=== PATIENT | female | born 1995 | race American Indian/Alaskan Native ===

== ENCOUNTER 2019-04-10 19:08 | Emergency (ER) | payer SELFPAY ==
[2019-04-10 19:26] VITALS: BP 156/85
--- NOTE | 2019-04-10 19:28 | Emergency Department Report ---
Blank Doc - Documentation Documentation: left sided facial swelling that began yesterday pt has a known bad tooth on the left upper and left lower was supposed to have a dental extraction september 2018 no fever no N/V/D no drainage PMHx none no allergies to meds
--- NOTE | 2019-04-10 19:29 | Emergency Department Report ---
ED ENT HPI - General Chief complaint: Dental/Oral Stated complaint: SWOLLEN JAW/GUMS, ABSCESSED TOOTH Time Seen by Provider: 04/10/19 19:23 Source: patient Mode of arrival: Ambulatory Limitations: No Limitations - History of Present Illness Initial comments: pt is a 23 yo female who presents to the ED with c/o left sided facial swelling that began yesterday. She states that she has a known bad tooth on the left upper and left lower. She was supposed to have a dental extraction september 2018 but moved and did not have it completed. She denies any fever, N/V/D, drainage. PMHx PCOS, LNMP in january but pt states she has irregular cycles no allergies to meds - Related Data Previous Rx's Medication Instructions Recorded Last Taken Type Acetaminophen/Codeine [Tylenol 1 tab PO Q6H PRN #7 tab 04/10/19 Unknown Rx /Codeine # 3 tab] Ibuprofen [Motrin 800 MG tab] 800 mg PO Q8HR PRN #14 tablet 04/10/19 Unknown Rx Penicillin Vk [Veetids TAB] 500 mg PO QID 7 Days #56 tablet 04/10/19 Unknown Rx Allergies Allergy/AdvReac Type Severity Reaction Status Date / Time No Known Allergies Allergy Unverified 04/10/19 19:17 ED Dental HPI - General Chief complaint: Dental/Oral Stated complaint: SWOLLEN JAW/GUMS, ABSCESSED TOOTH Time Seen by Provider: 04/10/19 19:23 Source: patient Mode of arrival: Ambulatory Limitations: No Limitations - Related Data Previous Rx's Medication Instructions Recorded Last Taken Type Acetaminophen/Codeine [Tylenol 1 tab PO Q6H PRN #7 tab 04/10/19 Unknown Rx /Codeine # 3 tab] Ibuprofen [Motrin 800 MG tab] 800 mg PO Q8HR PRN #14 tablet 04/10/19 Unknown Rx Penicillin Vk [Veetids TAB] 500 mg PO QID 7 Days #56 tablet 04/10/19 Unknown Rx Allergies Allergy/AdvReac Type Severity Reaction Status Date / Time No Known Allergies Allergy Unverified 04/10/19 19:17 ED Review of Systems ROS: Stated complaint: SWOLLEN JAW/GUMS, ABSCESSED TOOTH Other details as noted in HPI Comment: All other systems reviewed and negative ED Past Medical Hx - Past Medical History Previous Medical History?: Yes Hx Asthma: Yes Additional medical history: PCOS, Morbid Obesity - Surgical History Past Surgical History?: Yes Additional Surgical History: X1 - Social History Smoking Status: Never Smoker Substance Use Type: None - Medications Home Medications: Home Medications Medication Instructions Recorded Confirmed Last Taken Type Acetaminophen/Codeine [Tylenol 1 tab PO Q6H PRN #7 tab 04/10/19 Unknown Rx /Codeine # 3 tab] Ibuprofen [Motrin 800 MG tab] 800 mg PO Q8HR PRN #14 tablet 04/10/19 Unknown Rx Penicillin Vk [Veetids TAB] 500 mg PO QID 7 Days #56 tablet 04/10/19 Unknown Rx ED Physical Exam - General Limitations: No Limitations General appearance: alert, in no apparent distress - Head Head exam: Present: atraumatic, normocephalic - Eye Eye exam: Present: normal appearance, PERRL - ENT ENT exam: Present: normal orophraynx, mucous membranes moist, other (on the left lower jaw pt has partially cracked tooth, pt has edema present on the gum behind the tooth, small amount of left sided facial swelling in the cheek, uvula is midline ) - Respiratory Respiratory exam: Absent: respiratory distress - Neurological Exam Neurological exam: Present: alert, oriented X3 - Psychiatric Psychiatric exam: Present: normal affect, normal mood - Skin Skin exam: Present: warm, dry, intact ED Course Vital Signs 04/10/19 19:18 Temperature 98.4 F Pulse Rate 99 H Respiratory 16 Rate Blood Pressure 156/85 O2 Sat by Pulse 93 Oximetry ED Medical Decision Making - Medical Decision Making pt is a 23 yo female who presents to the ED with c/o left sided facial swelling that began yesterday. She states that she has a known bad tooth on the left upper and left lower. She was supposed to have a dental extraction september 2018 but moved and did not have it completed. She denies any fever, N/V/D, drainage. PMHx PCOS, LNMP in january but pt states she has irregular cycles. no allergies to meds. on exam: on the left lower jaw pt has partially cracked tooth, pt has edema present on the gum behind the tooth, small amount of left sided facial swelling in the cheek, uvula is midline. pt given abx, anti-inflammatory, and pain meds. Please take all medication as prescribed. do not drive or operate heavy machinery while taking pain medication. follow up with a dentist in the next 3-5 days. return to the emergency room for any new or worsening symptoms. Critical care attestation.: If time is entered above; I have spent that time in minutes in the direct care of this critically ill patient, excluding procedure time. ED Disposition Clinical Impression: Dental abscess, Cracked tooth Disposition: TO HOME OR SELFCARE Is pt being admited?: No Does the pt Need Aspirin: No Condition: Stable Instructions: Dental Abscess (ED), Dental Caries (ED) Additional Instructions: Please take all medication as prescribed. do not drive or operate heavy machinery while taking pain medication. follow up with a dentist in the next 3-5 days. return to the emergency room for any new or worsening symptoms. Prescriptions: Ibuprofen [Motrin 800 MG tab] 800 mg PO Q8HR PRN #14 tablet PRN Reason: Pain, Moderate (4-6) Acetaminophen/Codeine [Tylenol /Codeine # 3 tab] 1 tab PO Q6H PRN #7 tab PRN Reason: Pain , Severe (7-10) Penicillin Vk [Veetids TAB] 500 mg PO QID 7 Days #56 tablet Referrals: your, dentist [Other] - 3-5 Days Time of Disposition: 20:12 Print Language: TURKMEN
[2019-04-10 20:07] LABS: HCG Qualitative,Urine Negative (Negative)
== END 2019-04-10 20:45 | disposition home or self-care (01) ==
LOC: ED 19:08
DX: K03.81 Cracked tooth (principal); K04.7 Periapical abscess without sinus; J45.909 Unspecified asthma, uncomplicated; E66.01 Morbid (severe) obesity due to excess calories; E28.2 Polycystic ovarian syndrome; Z68.42 Body mass index [BMI] 45.0-49.9, adult; Z88.1 Allergy status to other antibiotic agents
CPT/HCPCS: 81025; 99283

== ENCOUNTER 2019-04-13 04:03 | Inpatient (IN) | payer OTHER ==
[2019-04-13] MEDS ORDERED: SUBLIMAZE IV ONE ×2 (04:27)
[2019-04-13] MEDS ORDERED: ZOFRAN IV ONE ×2 (04:27→04:28)
[2019-04-13] MEDS ORDERED: NACL 0.9% 1000 ML 1,000 ML IV ONE (04:27)
[2019-04-13 04:42] LABS: Basophils # (Auto) 0.1 K/mm3 (0.0-0.1); Basophils % (Auto) 0.9 % (0.0-1.8); Eosinophils % (Auto) 0.4 % (0.0-4.3); Hematocrit 34.6 % (30.3-42.9); Lymphocytes # (Auto) 1.9 K/mm3 (1.2-5.4); Lymphocytes % (Auto) 26.6 % (13.4-35.0); Mean Corpuscular HGB Conc 35 % (30-34); Mean Corpuscular Volume 85 fl (79-97); Monocytes # (Auto) 0.5 K/mm3 (0.0-0.8); Monocytes % (Auto) 7.1 % (0.0-7.3); Platelet Count 275 K/mm3 (140-440); Red Blood Count 4.06 M/mm3 (3.65-5.03); Red Cell Distribution Width 14.5 % (13.2-15.2)
[2019-04-13 04:59] LABS: BUN/Creatinine Ratio 11; Blood Urea Nitrogen 8 mg/dL (7-17); Calcium 9.8 mg/dL (8.4-10.2); Hemolysis Index 0
--- NOTE | 2019-04-13 06:05 | Cat Scan Report ---
PROCEDURE: CT NECK W CON TECHNIQUE: Computerized axial tomography of the soft tissue neck was performed following the IV inje ction of iodinated nonionic contrast. CT DOSE LENGTH PRODUCT: 426.7 mGycm HISTORY: dental abscess now with difficulty opening mouth COMPARISONS: None . FINDINGS: Mild soft tissue swelling adjacent to the mandible and maxilla. Reactive left greater than right cerv ical lymphadenopathy. No focal soft tissue fluid collection identified to suggest abscess formation. No periosteal reaction, erosion and/or fracture. The central airway is patent. Posterior nasopharynx is unremarkable. Parapharyngeal fat is normal and symmetric. Major vasculature of the neck as well opacified and normal in caliber. Normal spherical shape of the globes. Retrobulbar fat is unremarkable. The paranasal sinuses and mast oid air cells are clear. Imaged portion of the brain is unremarkable. The cervical spine is intact. IMPRESSION: Mild disorganized soft tissue swelling adjacent to the mandible and maxilla without focal organizing soft tissue fluid collection identified to suggest abscess formation. There is also no periosteal mariah ction or erosion identified. Reactive left greater than right cervical lymphadenopathy. The airway and major vasculature of the ne ck are patent. This document is electronically signed by Richi Macdonald MD., April 13 2019 06:03:59 AM ET
[2019-04-13] MEDS ORDERED: DECADRON IV ONE (08:04)
--- NOTE | 2019-04-13 08:04 | Emergency Department Report ---
ED General Adult HPI - General Chief complaint: Dental/Oral Stated complaint: ABSCESSED TOOTH/SWELLING Time Seen by Provider: 04/13/19 06:33 Source: patient Mode of arrival: Ambulatory Limitations: No Limitations - History of Present Illness Initial comments: Twice 3-year-old female was concerned she was having an allergic reaction as she noted increased swelling of her face after taking insulin. However the swelling was restricted to the left side of the face, the same side where she has an impacted wisdom teeth the reason for the penicillin prescription. She has had swelling and dental pain since Monday or Monday. She stated that last night s he felt like she has difficulty opening her mouth but she had no difficulty with secretions or any problems breathing. She denies fever or chills. -: Gradual, week(s) Location: face, neck Radiation: non-radiation Severity scale (0 -10): 7 Quality: aching Consistency: intermittent Improves with: none Worsens with: none Associated Symptoms: denies other symptoms Treatments Prior to Arrival: none - Related Data Previous Rx's Medication Instructions Recorded Last Taken Type Acetaminophen/Codeine [Tylenol 1 tab PO Q6H PRN #7 tab 04/10/19 Unknown Rx /Codeine # 3 tab] Ibuprofen [Motrin 800 MG tab] 800 mg PO Q8HR PRN #14 tablet 04/10/19 Unknown Rx Penicillin Vk [Veetids TAB] 500 mg PO QID 7 Days #56 tablet 04/10/19 Unknown Rx Allergies Allergy/AdvReac Type Severity Reaction Status Date / Time No Known Allergies Allergy Unverified 04/10/19 19:17 ED Review of Systems ROS: Stated complaint: ABSCESSED TOOTH/SWELLING Other details as noted in HPI Constitutional: denies: chills, fever Eyes: denies: eye pain, eye discharge, vision change ENT: as per HPI, dental pain, other (swelling). denies: ear pain, throat pain Respiratory: denies: cough, shortness of breath, wheezing Cardiovascular: denies: chest pain, palpitations Endocrine: no symptoms reported Gastrointestinal: denies: abdominal pain, nausea, diarrhea Genitourinary: denies: urgency, dysuria, discharge Musculoskeletal: denies: back pain, joint swelling, arthralgia Skin: denies: rash, lesions Neurological: denies: headache, weakness, paresthesias Psychiatric: denies: anxiety, depression Hematological/Lymphatic: denies: easy bleeding, easy bruising ED Past Medical Hx - Past Medical History Previous Medical History?: Yes Hx Asthma: Yes Additional medical history: PCOS, Morbid Obesity - Surgical History Past Surgical History?: Yes Additional Surgical History: X1 - Social History Smoking Status: Never Smoker Substance Use Type: None - Medications Home Medications: Home Medications Medication Instructions Recorded Confirmed Last Taken Type Acetaminophen/Codeine [Tylenol 1 tab PO Q6H PRN #7 tab 04/10/19 Unknown Rx /Codeine # 3 tab] Ibuprofen [Motrin 800 MG tab] 800 mg PO Q8HR PRN #14 tablet 04/10/19 Unknown Rx Penicillin Vk [Veetids TAB] 500 mg PO QID 7 Days #56 tablet 04/10/19 Unknown Rx ED Physical Exam - General Limitations: No Limitations General appearance: alert, in no apparent distress, obese - Head Head exam: Present: atraumatic, normocephalic - Eye Eye exam: Present: normal appearance. Absent: scleral icterus - ENT ENT exam: Present: other (patient has a partially erupted left lower wisdom tooth with some erythema but no angela abscess. There is swelling of the p erimandibular area and submandibular space without fluctuance.). Absent: normal orophraynx (there is 1-1-1/2 fingerbreadths mouth opening. The presence of trismus is not frankly evident) - Neck Neck exam: Present: normal inspection, lymphadenopathy, other (trachea is midline) - Respiratory Respiratory exam: Present: normal lung sounds bilaterally. Absent: respiratory distress - Cardiovascular Cardiovascular Exam: Present: regular rate, normal rhythm. Absent: systolic murmur, diastolic murmur, rubs, gallop - GI/Abdominal GI/Abdominal exam: Present: soft, normal bowel sounds. Absent: distended, tenderness, guarding, rebound - Extremities Exam Extremities exam: Present: normal inspection - Back Exam Back exam: Present: normal inspection - Neurological Exam Neurological exam: Present: alert, oriented X3, CN II-XII intact. Absent: motor sensory deficit - Psychiatric Psychiatric exam: Present: normal affect, normal mood - Skin Skin exam: Present: warm, dry, intact, normal color. Absent: rash ED Course Vital Signs 04/13/19 04/13/19 04/13/19 04:10 04:24 04:30 Temperature 99.7 F H Pulse Rate 103 H 96 H Respiratory 18 19 Rate Blood Pressure 106/56 131/79 O2 Sat by Pulse 97 99 98 Oximetry 04/13/19 04/13/19 04/13/19 04:46 05:00 06:04 Temperature Pulse Rate 92 H 91 H 75 Respiratory 14 19 20 Rate Blood Pressure 124/72 107/59 113/55 O2 Sat by Pulse 95 96 99 Oximetry - Reevaluation(s) Reevaluation #1: CT of the neck ruled out deep neck infection. There is no abscess. There is however substantial facial and neck cellulitis. Patient has been started on IV clindamycin will be given a dose of steroids. She will be admitted for further care and monitoring by the hospitalist service. No surgical process has been identified. 04/13/19 08:03 ED Medical Decision Making - Lab Data Result diagrams: 04/13/19 04:28 04/13/19 04:28 - Radiology Data Radiology results: report reviewed CT neck showed no deep neck infection or abscess Critical care attestation.: If time is entered above; I have spent that time in minutes in the direct care o f this critically ill patient, excluding procedure time. ED Disposition Clinical Impression: Facial cellulitis, Cellulitis, neck, Dental infection Disposition: OP ADMIT IP TO THIS HOSP Is pt being admited?: Yes Does the pt Need Aspirin: No Condition: Stable Referrals: SINTIA NGUYEN MD [Primary Care Provider] - 3-5 Days Time of Disposition: 08:05
[2019-04-13] MEDS ORDERED: DECADRON ONE (09:13)
--- NOTE | 2019-04-13 12:06 | History and Physical Report ---
History of Present Illness Date of examination: 04/13/19 Date of admission: 04/13/19 07:52 Chief complaint: Left jaw pains and swelling History of present illness: Patient is a 23 yo woman with a history Asthma and PCOS with irregular menstrual cycles and left upper and lower tooth decay who was suppose to have a dental extraction in September 2018 but she moved and unable to establish Dentist with current insurance. She has Dental insurance now but it doesn't start until May 06. She started having increase left sided jaw and neck swelling with severe constant radiating sharp pains without aggravating or relieving factors that started about 1 week ago. This is different than the problem in September 2018. She was initially seen here in the ED at [facility] on April 10, 2019 for same problem and sent home on PCN/Tylenol#3 and Motrin 800mg. She comes back today April 13, 2019 with worsening swelling and pain. She stated that last night she felt like she has difficulty opening her mouth but she had no difficulty with secretions or any problems breathing. She denies fever or chills. She is being admitted for tooth infection with SIRS. PMH: as hpi PSH: x 1, tonsillectomy SH: no tob/etoh/illegal drug abuse FH: hypertension and mother of lung cancer, maternal grandmother of bone cancer (she guess) ROS: Constitutional: denies: fever ENT: + left face pain and swelling to the neck area Respiratory: denies: cough, shortness of breath Cardiovascular: denies: chest pain Endocrine: denies unexplained weight loss or gain Gastrointestinal: denies: abdominal pain, nausea Genitourinary: denies: dysuria Rectal: denies no incontinence, no bleeding, no itching, no discharge Musculoskeletal: denies swelling, myaglia, muscle weakness Skin: denies: rash Neurological: denies: headache Hematological/Lymphatic: denies: easy bleeding or easy bruising Allergic/Immunologic: no urticaria, no allergic rhinitis, no anaphylaxis Psych: denies sadness or hopelessness, SI/HI Medications and Allergies Allergies Allergy/AdvReac Type Severity Reaction Status Date / Time No Known Allergies Allergy Unverified 04/10/19 19:17 Home Medications Medication Instructions Recorded Confirmed Last Taken Type Acetaminophen/Codeine [Tylenol 1 tab PO Q6H PRN #7 tab 04/10/19 Unknown Rx /Codeine # 3 tab] Ibuprofen [Motrin 800 MG tab] 800 mg PO Q8HR PRN #14 tablet 04/10/19 Unknown Rx Penicillin Vk [Veetids TAB] 500 mg PO QID 7 Days #56 tablet 04/10/19 Unknown Rx Exam - Physical Exam Narrative exam: Gen: WDWN, NAD, Awake, Alert, Orientated x 3, bmi 48 HEENT: NCAT, EOMI, PERRL, OP abnormal with left lower molar partially cracked and partially erupted left lower wisdom tooth with some erythema, airway patent Neck: supple, no adenopathy, no thyromegaly, no JVD CVS/Heart: RRR, normal S1S2, pulses present bilaterally Chest/Lungs: CTA B, Symmetrical chest expansion, good air entry bilaterally GI/Abdomen: soft, NTND, good bowel sounds, no guarding or rebound /Bladder: no suprapubic tenderness, no CVA or paraspinal tenderness Extermity/Skin: no c/c/e, no obvious rash MSK: FROM x 4 Neuro: CN 2-12 grossly intact, no new focal deficits Psych: calm - Constitutional Vitals: Temp Pulse Resp BP Pulse Ox 97.9 F 94 H 12 156/91 99 04/13/19 08:20 04/13/19 08:30 04/13/19 08:30 04/13/19 08:30 04/13/19 08:30 Results - Labs CBC & Chem 7: 04/13/19 04:28 04/13/19 04:28 Labs: Abnormal lab results 04/13/19 04/13/19 Range/Units 04:28 04:28 MCHC 35 H (30-34) % Glucose 103 H (65-100) mg/dL Assessment and Plan Patient is a 23 yo woman with a history Asthma and PCOS with irregular menstrual cycles and left upper and lower tooth decay who was suppose to have a dental extraction in September 2018 but she moved and unable to establish Dentist with current insurance. She has Dental insurance now but it doesn't start until May 06. She started having increase left sided jaw and neck swelling with severe constant radiating sharp pains without aggravating or relieving factors that started about 1 week ago. This is different than the problem in September 2018. She was initially seen here in the ED at [facility] on April 10, 2019 for same problem and sent home on PCN/Tylenol#3 and Motrin 800mg. She comes back today April 13, 2019 with worsening swelling and pain. She stated that last night she felt like she has difficulty opening her mouth but she had no difficulty with secretions or any problems breathing. She denies fever or chills. She is being admitted for tooth infection with SIRS. * CT neck with IV contrast IMPRESSION: Mild disorganized soft tissue swelling adjacent to the mandible and maxilla without focal organizing soft tissue fluid collection identified to suggest abscess formation. There is also no periosteal reaction or erosion identified. Reactive left greater than right cervical lymphadenopathy. The airway and major vasculature of the neck are patent. Sepsis from tooth infection as evident by HR 99, RR 21: treat with iv abx x 24 hours then d/c home on Oral abx, needs to see Dentist PAOL[facility], none here, she can go on Monday. 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
[2019-04-13] MEDS ORDERED: TYLENOL PO PRN (12:11)
[2019-04-13] MEDS ORDERED: ZOFRAN IV PRN (12:11)
[2019-04-13] MEDS ORDERED: AMBIEN PO PRN (12:11)
[2019-04-13] MEDS ORDERED: PROVENTIL IH PRN (12:12)
[2019-04-13] MEDS: PROTONIX PO SCH (12:35)
[2019-04-13] MEDS: NORCO 5/325 PO PRN ×2 (12:35→21:15)
[2019-04-13] MEDS: NACL 0.9% 1000 ML 1,000 ML IV SCH (12:37)
[2019-04-13] MEDS: CLEOCIN 300 MG/50 mL 300 MG/50 ML BAG IV SCH ×2 (13:25→21:17)
[2019-04-14] MEDS: NACL 0.9% 1000 ML 1,000 ML IV SCH ×2 (01:00→22:59)
[2019-04-14] MEDS: NORCO 5/325 PO PRN ×4 (03:10→17:36)
[2019-04-14] MEDS: CLEOCIN 300 MG/50 mL 300 MG/50 ML BAG IV SCH ×3 (03:51→14:43)
[2019-04-14 05:24] LABS: Hematocrit 31.9 % (30.3-42.9); Hemoglobin 11.2 gm/dl (10.1-14.3); Mean Corpuscular HGB Conc 35 % (30-34); Mean Corpuscular Volume 84 fl (79-97); Platelet Count 284 K/mm3 (140-440); Red Blood Count 3.81 M/mm3 (3.65-5.03); Red Cell Distribution Width 14.3 % (13.2-15.2)
[2019-04-14 05:45] LABS: BUN/Creatinine Ratio 12; Blood Urea Nitrogen 7 mg/dL (7-17); Calcium 9.3 mg/dL (8.4-10.2); Hemolysis Index 2
[2019-04-14] MEDS: PROTONIX PO SCH (10:03)
--- NOTE | 2019-04-14 13:00 | Progress Note ---
Assessment and Plan Assessment and plan: Patient is a 23 yo woman with a history Asthma and PCOS with irregular menstrual cycles and left upper and lower tooth decay who was suppose to have a dental extraction in September 2018 but she moved and unable to establish Dentist with current insurance. She has Dental insurance now but it doesn't start until May 06. She started having increase left sided jaw and neck swelling with severe constant radiating sharp pains without aggravating or relieving factors that started about 1 week ago. This is different than the problem in September 2018. She was initially seen here in the ED at [facility] on April 10, 2019 for same problem and sent home on PCN/Tylenol#3 and Motrin 800mg. She comes back today April 13, 2019 with worsening swelling and pain. She stated that last night she felt like she has difficulty opening her mouth but she had no difficulty with secretions or any problems breathing. She denies fever or chills. She is being admitted for tooth infection with SIRS. * CT neck with IV contrast IMPRESSION: Mild disorganized soft tissue swelling adjacent to the mandible and maxilla without focal organizing soft tissue fluid collection identified to suggest abscess formation. There is also no p eriosteal reaction or erosion identified. Reactive left greater than right cervical lymphadenopathy. The airway and major vasculature of the neck are patent. Sepsis from tooth infection as evident by HR 99, RR 21: treat with iv abx x 24 hours then d/c home on Oral abx, consulted ID for oral abx choice, needs to see Dentist none here, she can go on Monday. Asthma: nebs prn Morbid Obesity, bmi 48: insurance counselor on weight reduction Polycystic ovarian syndrome: weight reduction counseling full code DVT ppx sq heparin home reconciliation reviewed and done History Interval history: Patient was seen and examined. Follow-up on current diagnosis. No overnight e vents reported to me. Patient denies any chest pain, shortness breath, nausea/vomiting or severe headaches. Imaging, nursing note, chart, labs and old chart reviewed. Discussed with patient. Hospitalist Physical - Physical exam Narrative exam: Gen: WDWN, NAD, Awake, Alert, Orientated x 3, bmi 48 HEENT: NCAT, EOMI, PERRL, OP abnormal with left lower molar partially cracked and partially erupted left lower wisdom tooth with some erythema, airway patent Neck: supple,adenopathy, no thyromegaly, no JVD CVS/Heart: RRR, normal S1S2, pulses present bilaterally Chest/Lungs: CTA B, Symmetrical chest expansion, good air entry bilaterally GI/Abdomen: soft, NTND, good bowel sounds, no guarding or rebound /Bladder: no suprapubic tenderness, no CVA or paraspinal tenderness Extermity/Skin: no c/c/e, no obvious rash MSK: FROM x 4 Neuro: CN 2-12 grossly intact, no new focal deficits Psych: calm - Constitutional Vitals: Temp Pulse Resp BP Pulse Ox 98.9 F 92 H 20 123/77 91 04/14/19 11:37 04/14/19 11:37 04/14/19 11:37 04/14/19 11:37 04/14/19 11:37 Results - Labs CBC & Chem 7: 04/14/19 05:01 04/14/19 05:01 Labs: Laboratory Last Values WBC 8.2 K/mm3 (4.5-11.0) 04/14/19 05:01 RBC 3.81 M/mm3 (3.65-5.03) 04/14/19 05:01 Hgb 11.2 gm/dl (10.1-14.3) 04/14/19 05:01 Hct 31.9 % (30.3-42.9) 04/14/19 05:01 MCV 84 fl (79-97) 04/14/19 05:01 MCH 29 pg (28-32) 04/14/19 05:01 MCHC 35 % (30-34) H 04/14/19 05:01 RDW 14.3 % (13.2-15.2) 04/14/19 05:01 Plt Count 284 K/mm3 (140-440) 04/14/19 05:01 Lymph % (Auto) 26.6 % (13.4-35.0) 04/13/19 04:28 [place] % (Auto) 7.1 % (0.0-7.3) 04/13/19 04:28 Eos % (Auto) 0.4 % (0.0-4.3) 04/13/19 04:28 Baso % (Auto) 0.9 % (0.0-1.8) 04/13/19 04:28 Lymph # 1.9 K/mm3 (1.2-5.4) 04/13/19 04:28 [place] # 0.5 K/mm3 (0.0-0.8) 04/13/19 04:28 Eos # 0.0 K/mm3 (0.0-0.4) 04/13/19 04:28 Baso # 0.1 K/mm3 (0.0-0.1) 04/13/19 04:28 Seg Neutrophils % 65.0 % (40.0-70.0) 04/13/19 04:28 Seg Neutrophils # 4.7 K/mm3 (1.8-7.7) 04/13/19 04:28 Sodium 138 mmol/L (137-145) 04/14/19 05:01 Potassium 4.2 mmol/L (3.6-5.0) 04/14/19 05:01 Chloride 100.1 mmol/L (98-107) 04/14/19 05:01 Carbon Dioxide 24 mmol/L (22-30) 04/14/19 05:01 18 mmol/L 04/14/19 05:01 BUN 7 mg/dL (7-17) 04/14/19 05:01 0.6 mg/dL (0.7-1.2) L 04/14/19 05:01 Estimated GFR > 60 ml/min 04/14/19 05:01 12 % 04/14/19 05:01 Glucose 135 mg/dL (65-100) H 04/14/19 05:01 Lactic Acid 1.00 mmol/L (0.7-2.0) 04/13/19 04:28 Calcium 9.3 mg/dL (8.4-10.2) 04/14/19 05:01 HCG, Qual Negative (Negative) 04/13/19 04:28 Active Medications - Current Medications Current Medications: Generic Name Dose Route Start Last Admin Trade Name Freq PRN Reason Stop Dose Admin Acetaminophen 650 mg 04/13/19 12:11 Tylenol PO Q6H PRN Non Cardiac Pain or Temp>100.5 Acetaminophen/Hydrocodone Bitart 1 each 04/13/19 12:11 04/14/19 11:59 [place] 5/325 PO 1 each Q4H PRN Administration Pain, Moderate (4-6) Albuterol 2.5 mg 04/13/19 12:12 Proventil IH Q4HRT PRN Shortness Of Breath Heparin Sodium (Porcine) 5,000 unit 04/14/19 13:11 Heparin SUB-Q Q12HR SILVINA Clindamycin HCl 300 mg in 50 mls @ 100 mls/hr 04/13/19 14:00 04/14/19 10:03 Cleocin 300 Mg/50 Ml IV 100 mls/hr Q6H SILVINA Administration Protocol Sodium Chloride 1,000 mls @ 100 mls/hr 04/13/19 13:00 04/14/19 01:00 Nacl 0.9% 1000 Ml IV 100 mls/hr DIRECT SILVINA Administration Morphine Sulfate 2 mg 04/13/19 12:13 Morphine IV Q4H PRN Pain , Severe (7-10) Ondansetron HCl 4 mg 04/13/19 12:11 Zofran IV Q4H PRN Nausea And Vomiting Pantoprazole Sodium 40 mg 04/13/19 13:00 04/14/19 10:03 Protonix PO 40 mg QDAY SILVINA Administration Zolpidem Tartrate 5 mg 04/13/19 12:11 Ambien PO QHS PRN Sleep
[2019-04-14] MEDS: HEPARIN SUB-Q SCH ×2 (14:43→22:56)
[2019-04-14] MEDS: MORPHINE IV PRN (15:27)
--- NOTE | 2019-04-14 16:38 | Consultation ---
History of Present Illness - Reason for Consult Consult date: 04/14/19 oral abscess/penicillin allergy Requesting physician: SABAS LEE - History of Present Illness 23 y/o female with history obesity, asthma and PCOS admitted on 04/13/2019 due to a-week history of left cheek edema, pain and tenderness. Seen in the ED on 04/10/2019 found to have a dental abscess and sent home on Penicillin VK QID. Patient reports that after second dose of penicillin VK she developed worsening bilateral facial swelling and tongue swelling with difficulties opening her mo uth. No itching or rash. She decided to come to the ED. In the ED, temp 98.5, HR 91, R 20, O2 sat 95, BP 132/83. WBC 7.2 . Hg 12. Plat 275. Creat 0.7 Lactate 1. UA negative. Blood cultures 04/13/[address] neck showed mild disorganized soft tissue swelling adjacent to the mandible and maxillary sinus, no collections, no periostial reactions. Review of Systems: General: no fever, chills. Cutaneous: no rash, pruritus Head: no headaches or injury Eyes: no changes in vision, eye pain, double vision Ears: no ear pain, ear discharge, ringing or hearing loss Nose: no nose bleeding, stuffiness Mouth & throat: +trismus Neck: +left neck swelling edema/tenderness Respiratory: no cough, wheezing, sputum, hemoptysis, pleuritic chest pain Cardiovascular: no chest pain, leg edema, cyanosis, MALONEY, orthopnea Musculoskeletal: no edema Gastrointestinal: no nausea, vomiting, no hematemesis, diarrhea, constipation, melena, bright red blood in stools, fecal incontinence, jaundice Genitourinary/Reproductive: no frequent urination, dysuria, hematuria, incontinence Neurogical: no seizures, no headaches, no weakness, no paresthesias, no loss of speech or vision; no memory loss, no vertigo, no tremors, no numbness Psychiatric: stable mood; no excessive anxiety, sadness or moodiness Medications and Allergies Allergies Allergy/AdvReac Type Severity Reaction Status Date / Time Penicillins Allergy Swelling Verified 04/13/19 12:25 Home Medications Medication Instructions Recorded Confirmed Last Taken Type Acetaminophen/Codeine [Tylenol 1 tab PO Q6H PRN #7 tab 04/10/19 Unknown Rx /Codeine # 3 tab] Ibuprofen [Motrin 800 MG tab] 800 mg PO Q8HR PRN #14 tablet 04/10/19 Unknown Rx Penicillin Vk [Veetids TAB] 500 mg PO QID 7 Days #56 tablet 04/10/19 Unknown Rx Active Meds: Active Medications Acetaminophen (Tylenol) 650 mg PO Q6H PRN PRN Reason: Non Cardiac Pain or Temp>100.5 Acetaminophen/Hydrocodone Bitart ([place] 5/325) 1 each PO Q4H PRN PRN Reason: Pain, Moderate (4-6) Last Admin: 04/14/19 11:59 Dose: 1 each Documented by: Albuterol (Proventil) 2.5 mg IH Q4HRT PRN PRN Reason: Shortness Of Breath Heparin Sodium (Porcine) (Heparin) 5,000 unit SUB-Q Q12HR [facility] Last Admin: 04/14/19 14:43 Dose: 5,000 unit Documented by: Clindamycin HCl (Cleocin 300 Mg/50 Ml) 300 mg in 50 mls @ 100 mls/hr IV Q6H SILVINA; Protocol Last Admin: 04/14/19 14:43 Dose: 100 mls/hr Documented by: Sodium Chloride (Nacl 0.9% 1000 Ml) 1,000 mls @ 100 mls/hr IV DIRECT SILVINA Last Admin: 04/14/19 01:00 Dose: 100 mls/hr Documented by: Morphine Sulfate (Morphine) 2 mg IV Q4H PRN PRN Reason: Pain , Severe (7-10) Last Admin: 04/14/19 15:27 Dose: 2 mg Documented by: Ondansetron HCl (Zofran) 4 mg IV Q4H PRN PRN Reason: Nausea And Vomiting Pantoprazole Sodium (Protonix) 40 mg PO QDAY [facility] Last Admin: 04/14/19 10:03 Dose: 40 mg Documented by: Zolpidem Tartrate (Ambien) 5 mg PO QHS PRN PRN Reason: Sleep Physical Examination - Physical Exam Narrative exam: General appearance: Alert in no resp distress Eyes: anicteric sclerae, moist conjunctivae; no lid-lag; PERRLA HENT: Atraumatic; oropharynx limited +trismus Neck: +left lateral neck edema and tenderness Lungs: CTA, with normal respiratory effort and no intercostal retractions CV: RRR Abdomen: Soft, non-tender; no masses or hepatosplenomegaly Extremities: extensive right lateral forefoot necrotic changes and devitalized tissue Skin: Normal temperature, turgor and texture; no rash, ulcers or subcutaneous nodules Psych: Appropriate affect, alert and oriented to person, place and time. Neuro: alert and oriented x 3. Moving all extermities - Constitutional Vitals: Vital Signs Temp Pulse Resp BP Pulse Ox 98.9 F 92 H 20 123/77 91 04/14/19 11:37 04/14/19 11:37 04/14/19 11:37 04/14/19 11:37 04/14/19 11:37 Temperature -Last 24 Hours Temperature 98.9 F Temperature 98.7 F Temperature 99.2 F Temperature 98.5 F Results - Labs CBC & Chem 7: 04/14/19 05:01 04/14/19 05:01 Labs: Abnormal lab results 04/14/19 04/14/19 Range/Units 05:01 05:01 MCHC 35 H (30-34) % Creatinine 0.6 L (0.7-1.2) mg/dL Glucose 135 H (65-100) mg/dL Assessment and Plan Cultures: Blood cultures 04/13/2019 no growth so far. Assessment: 23 y/o female with history obesity, asthma and PCOS admitted on 04/13/2019 due to a-week history of left-facial edema, pain and tenderness. Seen in the ED on 04/10/2019 found to have a dental abscess and sent home on Penicillin VK QID. Patient reports that after second dose of penicillin VK she developed worsening bilateral facial swelling and tongue swelling with difficulties opening her mouth: 1) Left upper odontogenic infection: known to have dental decay needing extraction. CT neck showed mild disorganized soft tissue swelling adjacent to the mandible and maxillary sinus, no collections, no periostial reactions. Placed on penicillin VK with presumed allergic reaction. Now on clindamycin. 2) Penicillin allergic reaction: better. Recommendations: - increase clindamycin 600 mg IV q 8 hour - monitor trismus/oral intake in 1-2 days, if better ok to d/c home on clindamycin 450 mg PO TID for 7 days - f/u with dentist as an outpatient Will follow. Caitlin Fam MD Infectious Diseases Director Strategic Account Management [facility] M [phone] O [phone]
[2019-04-14] MEDS: CLEOCIN 600 MG/50 mL 600 MG/50 ML BAG IV SCH (17:35)
[2019-04-14] MEDS ORDERED: IBUPROFEN PO PRN (20:21)
[2019-04-15] MEDS: CLEOCIN 600 MG/50 mL 600 MG/50 ML BAG IV SCH ×2 (02:47→11:11)
[2019-04-15] MEDS: MORPHINE IV PRN ×4 (02:51→18:12)
[2019-04-15] MEDS: PROTONIX PO SCH (09:43)
[2019-04-15] MEDS: HEPARIN SUB-Q SCH ×2 (09:44→21:48)
--- NOTE | 2019-04-15 10:34 | Progress Note ---
Assessment and Plan Cultures: Blood cultures 04/13/2019 no growth so far. Assessment: 23 y/o female with history obesity, asthma and PCOS admitted on 04/13/2019 due to a-week history of left-facial edema, pain and tenderness. Seen in the ED on 04/10/2019 found to have a dental abscess and sent home on Penicillin VK QID. Patient reports that after second dose of penicillin VK she developed worsening bilateral facial swelling and tongue swelling with difficulties opening her mouth: 1) Left upper odontogenic infection: known to have dental decay needing extraction. CT neck showed mild disorganized soft tissue swelling adjacent to the mandible and maxillary sinus, no collections, no periostial reactions. 2) Penicillin allergic reaction: better. 3) Clindamycin allergic: reports increased neck and throat swelling, Recommendations: - discontinue clindamycin- allergic reaction reported - continue to monitor worsening trismus/oral intake - start Levofloxacin 750mg IV every 24 hours -continue Vancomycin PK dosing - f/u with dentist as an outpatient [facility] M: [phone] O:[phone] Subjective Date of service: 04/15/19 Interval history: Patient seen and examined. Reports increased throat and neck swelling with Clind amycin dose. Medication stopped, RN a bedside. No fevers. Objective - Exam Narrative Exam: General appearance: Awake. Alert. Distress observed, allergic reaction to Clindamycin Eyes: anicteric sclerae, moist conjunctivae; no lid-lag; PERRLA HENT: Atraumatic; oropharynx, worsening trismus Neck: +left lateral neck edema and tenderness. Right lateral neck edema Lungs: CTA, with normal respiratory effort and no intercostal retractions CV: RRR Abdomen: Soft, non-tender; no masses or hepatosplenomegaly Extremities: No pedal edema, no cyanosis. Skin: Normal temperature, turgor and texture; no rash, ulcers or subcutaneous nodules Psych: Appropriate affect, alert and oriented to person, place and time. Neuro: alert and oriented x 3. Moving all extermities - Constitutional Vitals: Vital Signs Temp Pulse Resp BP Pulse Ox 98.7 F 92 H 24 145/84 96 04/15/19 05:20 04/15/19 09:52 04/15/19 05:20 04/15/19 09:52 04/15/19 05:20 Temperature -Last 24 Hours Temperature 98.7 F Temperature 99.5 F Temperature 99.2 F Temperature 98.9 F - Labs CBC & Chem 7: 04/14/19 05:01 04/14/19 05:01
[2019-04-15] MEDS ORDERED: BENADRYL IV PRN (11:53)
--- NOTE | 2019-04-15 11:59 | Progress Note ---
Assessment and Plan Assessment and plan: Patient is a 23 yo woman with a history Asthma and PCOS with irregular menstrual cycles and left upper and lower tooth decay who was suppose to have a dental extraction in September 2018 but she moved and unable to establish Dentist with current insurance. She has Dental insurance now but it doesn't start until May 06. She started having increase left sided jaw and neck swelling with severe constant radiating sharp pains without aggravating or relieving factors that started about 1 week ago. This is different than the problem in September 2018. She was initially seen here in the ED at [facility] on April 10, 2019 for same problem and sent home on PCN/Tylenol#3 and Motrin 800mg. She comes back today April 13, 2019 with worsening swelling and pain. She stated that last night she felt like she has difficulty opening her mouth but she had no difficulty with secretions or any problems breathing. She denies fever or chills. She is being admitted for tooth infection with SIRS. * CT neck with IV contrast IMPRESSION: Mild disorganized soft tissue swelling adjacent to the mandible and maxilla without focal organizing soft tissue fluid collection identified to suggest abscess formation. There is also no p eriosteal reaction or erosion identified. Reactive left greater than right cervical lymphadenopathy. The airway and major vasculature of the neck are patent. Sepsis from tooth infection as evident by HR 99, RR 21: ID input noted, abx adjusted Asthma: nebs prn Morbid Obesity, bmi 48: retirement plan counselor on weight reduction Polycystic ovarian syndrome: weight reduction counseling Trismus: start steroids, ordered PT. full code DVT ppx sq heparin Home reconciliation reviewed and done Disposition: continue inpatient care, was going to discharge but she developed worsening trismus, so discharge held and IV steroids started History Interval history: Patient was seen and examined. Follow-up on current diagnosis of tooth infection. No overnight events reported to me. Patient denies any chest pain, shortness breath, nausea/vomiting or severe headaches. Imaging, nursing note, chart, labs and old chart reviewed. Discussed with patient. Hospitalist Physical - Physical exam Narrative exam: Gen: WDWN, NAD, Awake, Alert, Orientated x 3, bmi 48 HEENT: NCAT, EOMI, PERRL, OP abnormal with left lower molar partially cracked and partially erupted left lower wisdom tooth with some erythema, airway patent Neck: supple,adenopathy, no thyromegaly, no JVD CVS/Heart: RRR, normal S1S2, pulses present bilaterally Chest/Lungs: CTA B, Symmetrical chest expansion, good air entry bilaterally GI/Abdomen: soft, NTND, good bowel sounds, no guarding or rebound /Bladder: no suprapubic tenderness, no CVA or paraspinal tenderness Extermity/Skin: no c/c/e, no obvious rash MSK: FROM x 4 Neuro: CN 2-12 grossly intact, no new focal deficits Psych: calm - Constitutional Vitals: Temp Pulse Resp BP Pulse Ox 98.7 F 92 H 24 145/84 96 04/15/19 05:20 04/15/19 09:52 04/15/19 05:20 04/15/19 09:52 04/15/19 05:20 Results - Labs CBC & Chem 7: 04/14/19 05:01 04/14/19 05:01 Labs: Laboratory Last Values WBC 8.2 K/mm3 (4.5-11.0) 04/14/19 05:01 RBC 3.81 M/mm3 (3.65-5.03) 04/14/19 05:01 Hgb 11.2 gm/dl (10.1-14.3) 04/14/19 05:01 Hct 31.9 % (30.3-42.9) 04/14/19 05:01 MCV 84 fl (79-97) 04/14/19 05:01 MCH 29 pg (28-32) 04/14/19 05:01 MCHC 35 % (30-34) H 04/14/19 05:01 RDW 14.3 % (13.2-15.2) 04/14/19 05:01 Plt Count 284 K/mm3 (140-440) 04/14/19 05:01 Lymph % (Auto) 26.6 % (13.4-35.0) 04/13/19 04:28 [place] % (Auto) 7.1 % (0.0-7.3) 04/13/19 04:28 Eos % (Auto) 0.4 % (0.0-4.3) 04/13/19 04:28 Baso % (Auto) 0.9 % (0.0-1.8) 04/13/19 04:28 Lymph # 1.9 K/mm3 (1.2-5.4) 04/13/19 04:28 [place] # 0.5 K/mm3 (0.0-0.8) 04/13/19 04:28 Eos # 0.0 K/mm3 (0.0-0.4) 04/13/19 04:28 Baso # 0.1 K/mm3 (0.0-0.1) 04/13/19 04:28 Seg Neutrophils % 65.0 % (40.0-70.0) 04/13/19 04:28 Seg Neutrophils # 4.7 K/mm3 (1.8-7.7) 04/13/19 04:28 Sodium 138 mmol/L (137-145) 04/14/19 05:01 Potassium 4.2 mmol/L (3.6-5.0) 04/14/19 05:01 Chloride 100.1 mmol/L (98-107) 04/14/19 05:01 Carbon Dioxide 24 mmol/L (22-30) 04/14/19 05:01 18 mmol/L 04/14/19 05:01 BUN 7 mg/dL (7-17) 04/14/19 05:01 0.6 mg/dL (0.7-1.2) L 04/14/19 05:01 Estimated GFR > 60 ml/min 04/14/19 05:01 12 % 04/14/19 05:01 Glucose 135 mg/dL (65-100) H 04/14/19 05:01 Lactic Acid 1.00 mmol/L (0.7-2.0) 04/13/19 04:28 Calcium 9.3 mg/dL (8.4-10.2) 04/14/19 05:01 HCG, Qual Negative (Negative) 04/13/19 04:28 Active Medications - Current Medications Current Medications: Generic Name Dose Route Start Last Admin Trade Name Freq PRN Reason Stop Dose Admin Acetaminophen 650 mg 04/13/19 12:11 Tylenol PO Q6H PRN Non Cardiac Pain or Temp>100.5 Acetaminophen/Hydrocodone Bitart 1 each 04/13/19 12:11 04/14/19 17:36 [place] 5/325 PO 1 each Q4H PRN Administration Pain, Moderate (4-6) Albuterol 2.5 mg 04/13/19 12:12 Proventil IH Q4HRT PRN Shortness Of Breath Diphenhydramine HCl 25 mg 04/15/19 11:53 Benadryl IV Q6H PRN Itching Heparin Sodium (Porcine) 5,000 unit 04/14/19 13:11 04/15/19 09:44 Heparin SUB-Q 5,000 unit Q12HR SILVINA Administration Clindamycin HCl 600 mg in 50 mls @ 100 mls/hr 04/14/19 18:00 04/15/19 11:11 Cleocin 600 Mg/50 Ml IV 100 mls/hr Q8H SILVINA Administration Protocol Methylprednisolone Sodium Succinate 80 mg 04/15/19 14:00 Solu-Medrol IV Q8HR SILVINA Morphine Sulfate 2 mg 04/13/19 12:13 04/15/19 09:43 Morphine IV 2 mg Q4H PRN Administration Pain , Severe (7-10) Ondansetron HCl 4 mg 04/13/19 12:11 Zofran IV Q4H PRN Nausea And Vomiting Pantoprazole Sodium 40 mg 04/13/19 13:00 04/15/19 09:43 Protonix PO 40 mg QDAY SILVINA Administration Zolpidem Tartrate 5 mg 04/13/19 12:11 Ambien PO QHS PRN Sleep Nutrition/Malnutrition Assess - Dietary Evaluation Nutrition/Malnutrition Findings: Nutrition Notes Start: 04/14/19 15:53 Freq: Status: Active Protocol: Document 04/14/19 15:53 RM (Rec: 04/14/19 15:54 RM [id number]) Nutrition Notes 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 Ramez 21 points. Nutrition Intervention Revisit per MD consult or patient Sign Off request:
[2019-04-15] MEDS ORDERED: VANCOMYCIN 2,000 MG in NACL 0.9% 500 ML 500 ML IV ONE (12:30)
[2019-04-15] MEDS ORDERED: VANCOMYCIN PHARMACY TO DOSE IV SCH (13:00)
[2019-04-15] MEDS: LEVAQUIN 750MG/150ML 750 MG/150 ML BAG IV SCH (13:45)
[2019-04-15] MEDS: SOLU-Medrol IV SCH ×2 (13:45→21:49)
[2019-04-16] MEDS ORDERED: VANCOMYCIN 2,000 MG in NACL 0.9% 500 ML 500 ML IV SCH (00:30)
[2019-04-16] MEDS: MORPHINE IV PRN (02:04)
[2019-04-16] MEDS: SOLU-Medrol IV SCH (05:13)
--- NOTE | 2019-04-16 10:49 | Progress Note ---
Assessment and Plan Cultures: Blood cultures 04/13/2019 no growth so far. Assessment: 23 y/o female with history obesity, asthma and PCOS admitted on 04/13/2019 due to a-week history of left-facial edema, pain and tenderness. Seen in the ED on 04/10/2019 found to have a dental abscess and sent home on Penicillin VK QID. Patient reports that after second dose of penicillin VK she developed worsening bilateral facial swelling and tongue swelling with difficulties opening her mouth: 1) Left upper odontogenic infection: known to have dental decay needing extraction. CT neck showed mild disorganized soft tissue swelling adjacent to the mandible and maxillary sinus, no collections, no periostial reactions. 2) Penicillin allergic reaction: better. 3) Clindamycin allergic: better Recommendations: - continue Levofloxacin 750mg IV every 24 hours -continue Vancomycin PK dosing -Anticipate discharge on Levaquin 750mg PO for 5 days. - f/u with dentist as an outpatient [facility] for evaluation of decayed tooth extraction if indicated - appointment on Monday. [facility] M: [phone] O:[phone] Subjective Date of service: 04/16/19 Interval history: Patient seen and examined. Sitting on the side of the bed. Patient stated that she was feeling better today. Dental appointment this Monday. Objective - Exam Narrative Exam: General appearance: Awake. Alert. Distress observed, allergic reaction to Clindamycin Eyes: anicteric sclerae, moist conjunctivae; no lid-lag; PERRLA HENT: Atraumatic; oropharynx, worsening trismus Neck: Right lateral neck edema improved Lungs: CTA, with normal respiratory effort and no intercostal retractions CV: RRR Abdomen: Soft, non-tender; no masses or hepatosplenomegaly Extremities: No pedal edema, no cyanosis. Skin: Normal temperature, turgor and texture; no rash, ulcers or subcutaneous nodules Psych: Appropriate affect, alert and oriented to person, place and time. Neuro: alert and oriented x 3. Moving all extermities - Constitutional Vitals: Vital Signs Temp Pulse Resp BP Pulse Ox 98.2 F 55 L 16 96/58 94 04/16/19 06:29 04/16/19 05:56 04/16/19 05:56 04/16/19 05:56 04/16/19 05:56 Temperature -Last 24 Hours Temperature 98.2 F Temperature 99.1 F Temperature 99.2 F Temperature 98.6 F - Labs CBC & Chem 7: 04/14/19 05:01 04/14/19 05:01
[2019-04-16] MEDS: LEVAQUIN 750MG/150ML 750 MG/150 ML BAG IV SCH (11:26)
[2019-04-16] MEDS: PROTONIX PO SCH (11:26)
[2019-04-16] MEDS: HEPARIN SUB-Q SCH (11:26)
--- NOTE | 2019-04-16 12:00 | Discharge Summary ---
Providers - Providers Date of Admission: 04/13/19 07:52 Date of discharge: 04/16/19 Attending physician: SABAS LEE 04/14/19 12:58 Consult to Physician [CONS] Routine Comment: Consulting Provider: CHELSEA KEENE Physician Instructions: Reason For Exam: oral abscess, abx management Primary care physician: SINTIA NGUYEN Hospitalization Condition: Stable Hospital course: Patient is a 23 yo woman with a history Asthma and PCOS with irregular menstrual cycles and left upper and lower tooth decay who was suppose to have a dental extraction in September 2018 but she moved and unable to establish Dentist with current insurance. She has Dental insurance now but it doesn't start until May 06. She started having increase left sided jaw and neck swelling with severe constant radiating sharp pains without aggravating or relieving factors that started about 1 week ago. This is different than the problem in September 2018. She was initially seen here in the ED at [facility] on April 10, 2019 for same problem and sent home on PCN/Tylenol#3 and Motrin 800mg. She comes back today April 13, 2019 with worsening swelling and pain. She stated that last night she felt like she has difficulty opening her mouth but she had no difficulty with secretions or any problems breathing. She denies fever or chills. She is being admitted for tooth infection with SIRS. * CT neck with IV contrast IMPRESSION: Mild disorganized soft tissue swelling adjacent to the mandible and maxilla without focal organizing soft tissue fluid collection identified to suggest abscess formation. There is also no periosteal reaction or erosion identified. Reactive left greater than right cervical lymphadenopathy. The airway and major vasculature of the neck are patent. Sepsis from tooth infection as evident by HR 99, RR 21: ID input noted, abx adjusted Asthma: nebs prn Morbid Obesity, bmi 48: clinical counselor on weight reduction Polycystic ovarian syndrome: weight reduction counseling Trismus resolving: start steroids, ordered PT. Full code DVT ppx sq heparin Home reconciliation reviewed and done ?Allergic reaction to Clindamycin, stop med and add iv vancomycin, ID to evaluate Patient needs to see Dentist [facility] Disposition: - TO HOME OR SELFCARE Time spent for discharge: 36 minutes Core Measure Documentation - Palliative Care Palliative Care/ Comfort Measures: Not Applicable - Core Measures Any of the following diagnoses?: none - VTE Discharge Requirements Deep Vein Thrombosis/Pulmonary Embolism Present on Admission: No Has pt received <5 days of overlap therapy or INR<2.0: No Anticoagulant overlap therapy prescribed at discharge: No Contraindication No Overlap Therapy order at DC: Not Indicated Exam - Physical Exam Narrative exam: Gen: WDWN, NAD, Awake, Alert, Orientated x 3, bmi 48 HEENT: NCAT, EOMI, PERRL, OP abnormal with left lower molar partially cracked and partially erupted left lower wisdom tooth with some erythema, airway patent Neck: supple,adenopathy, no thyromegaly, no JVD CVS/Heart: RRR, normal S1S2, pulses present bilaterally Chest/Lungs: CTA B, Symmetrical chest expansion, good air entry bilaterally GI/Abdomen: soft, NTND, good bowel sounds, no guarding or rebound /Bladder: no suprapubic tenderness, no CVA or paraspinal tenderness Extermity/Skin: no c/c/e, no obvious rash MSK: FROM x 4 Neuro: CN 2-12 grossly intact, no new focal deficits Psych: calm - Constitutional Vitals: Temp Pulse Resp BP Pulse Ox 98.2 F 55 L 16 96/58 94 04/16/19 06:29 04/16/19 05:56 04/16/19 05:56 04/16/19 05:56 04/16/19 05:56 Plan Activity: other (no strenous activity unless cleared by PCP) Diet: regular Additional Instructions: I have made you an appointment with Dr. Keily Krause DDS 04/18/19 at [address]am[address] [place] [address]. . $232 without insurance, due at the time of service Follow up with: SINTIA NGUYEN MD [Primary Care Provider] - 3-5 Days Prescriptions: levoFLOXacin [Levaquin] 750 mg PO QDAY #5 tablet methylPREDNISolone [Medrol 4MG DOSEPAK (21 tabs)] 1 tab PO DAILY #1 tab.ds.pk HYDROcodone/APAP 5-325 [[place] 5-325 mg TAB] 1 each PO Q4H PRN #10 tablet PRN Reason: Pain , Severe (7-10)
[2019-04-16 13:10] VITALS: BP 124/96
== END 2019-04-16 14:35 | disposition home or self-care (01) | DRG 872 ==
LOC: ED 04:03 → 3A 07:52
PROVIDERS: ADMIT Internal Medicine; ATTEND Internal Medicine
DX: A41.9 Sepsis, unspecified organism (principal); L03.211 Cellulitis of face; K04.7 Periapical abscess without sinus; E66.01 Morbid (severe) obesity due to excess calories; J45.909 Unspecified asthma, uncomplicated; E28.2 Polycystic ovarian syndrome; R25.2 Cramp and spasm; L03.221 Cellulitis of neck; Z88.0 Allergy status to penicillin; Z68.42 Body mass index [BMI] 45.0-49.9, adult; Z88.1 Allergy status to other antibiotic agents; Z82.49 Family history of ischemic heart disease and other diseases of the circulatory system; Z80.1 Family history of malignant neoplasm of trachea, bronchus and lung; Z80.8 Family history of malignant neoplasm of other organs or systems; Z79.899 Other long term (current) drug therapy; Z71.3 Dietary counseling and surveillance
CPT/HCPCS: 36415; 70491; 80048; 82140; 84703; 85025; 85027; 87040; G0378; J1100; J1200; J1644; J1956; J2270; J2405; J2930; J3010; J3370; J7030; J7040; Q9967

== ENCOUNTER 2019-06-18 11:56 | Emergency (ER) | payer SELFPAY ==
--- NOTE | 2019-06-18 12:16 | Event Note ---
ED Screening Note ED Screening Note: pt states she has fatigue, N/V/D, lightheadedness states she has had it for 4 days no urinary sx no sick contact no abd pain no recent abx no camping LNMP: January 2019, states she has irregular cycles PMHx PCOS, HTN, prediabetes allergy: penicillin This initial assessment/diagnostic orders/clinical plan/treatment(s) is/are subject to change based on patients health status, clinical progression and re- assessment by fellow clinical providers in the ED. Further treatment and workup at subsequent clinical providers discretion. Patient/guardian urged not to elope from the ED as their condition may be serious if not clinically assessed and managed. Initial orders include: labs, UA
[2019-06-18 12:17] VITALS: BP 129/66
[2019-06-18 13:17] LABS: Hematocrit 33.2 % (30.3-42.9); Hemoglobin 11.1 gm/dl (10.1-14.3); Mean Corpuscular HGB Conc 34 % (30-34); Mean Corpuscular Volume 86 fl (79-97); Red Blood Count 3.86 M/mm3 (3.65-5.03)
[2019-06-18 13:18] LABS: Platelet Count 299 K/mm3 (140-440); Red Cell Distribution Width 15.2 % (13.2-15.2)
[2019-06-18 13:24] LABS: Mucus,Urine 2+ /HPF
[2019-06-18 13:25] LABS: Bilirubin,Urine NEG (Negative); Blood,Urine NEG (Negative); Color,Urine Yellow (Yellow); Protein,Urine <15 mg/dL mg/dL (Negative); Urobilinogen,Urine < 2.0 mg/dL (<2.0)
[2019-06-18 13:50] LABS: Alanine Aminotransferase 9 units/L (7-56); Albumin 4.2 g/dL (3.9-5); BUN/Creatinine Ratio 20; Blood Urea Nitrogen 10 mg/dL (7-17); Calcium 9.1 mg/dL (8.4-10.2); Hemolysis Index 0
[2019-06-18] MEDS ORDERED: ZOFRAN IV ONE (13:59)
[2019-06-18] MEDS ORDERED: NACL 0.9% 1000 ML 1,000 ML IV ONE (13:59)
[2019-06-18] MEDS ORDERED: LEVSIN SL SL ONE (13:59)
[2019-06-18 14:32] LABS: Basophils % (Manual) 0 % (0.0-1.8); Total Cells Counted 100
[2019-06-18 14:33] LABS: Anisocytosis 1+; Platelet Estimate Consistent w Auto
--- NOTE | 2019-06-18 14:37 | Emergency Department Report ---
ED N/V/D HPI - General Chief complaint: Abdominal Pain Stated complaint: FATIGUE/NAUSEA/DEHYDRATION Time Seen by Provider: 06/18/19 12:13 Source: patient Mode of arrival: Ambulatory Limitations: No Limitations - History of Present Illness Initial comments: pt is a 23 yo female who presents to the ED with c/o fatigue, N/V/D, lightheadedness that began 4 days ago. she denies any urinary sx, abd pain, fever, sick contacts, recent abx, recent camping. LNMP: January 2019, states she has irregular cycles. PMHx PCOS, HTN, prediabetes. allergy: penicillin - Related Data Previous Rx's Medication Instructions Recorded Last Taken Type Acetaminophen [Acetaminophen TAB] 325 mg PO Q6H PRN #15 tablet 04/16/19 Unknown Rx HYDROcodone/APAP 5-325 [[place] 1 each PO Q4H PRN #10 tablet 04/16/19 Unknown Rx 5-325 mg TAB] Ibuprofen [Motrin] 800 mg PO Q8HR PRN #6 tablet 04/16/19 Unknown Rx Pantoprazole [Protonix] 40 mg PO QDAY #7 tablet 04/16/19 Unknown Rx levoFLOXacin [Levaquin] 750 mg PO QDAY #5 tablet 04/16/19 Unknown Rx methylPREDNISolone [Medrol 4MG 1 tab PO DAILY #1 tab.ds.pk 04/16/19 Unknown Rx DOSEPAK (21 tabs)] Hyoscyamine Subl [Levsin Sl 0.125 0.125 mg SL Q6HR PRN #10 tab 06/18/19 Unknown Rx TAB] Ondansetron [Zofran Odt] 4 mg PO Q8HR PRN #14 tab.rapdis 06/18/19 Unknown Rx Allergies Allergy/AdvReac Type Severity Reaction Status Date / Time clindamycin Allergy Swelling Verified 04/15/19 12:14 Penicillins Allergy Swelling Verified 04/13/19 12:25 ED Review of Systems ROS: Stated complaint: FATIGUE/NAUSEA/DEHYDRATION Other details as noted in HPI Comment: All other systems reviewed and negative ED Past Medical Hx - Past Medical History Hx Congestive Heart Failure: No Hx Diabetes: No Hx Asthma: Yes Hx COPD: No Additional medical history: PCOS, Morbid Obesity - Surgical History Past Surgical History?: Yes Additional Surgical History: X1 - Social History Smoking Status: Never Smoker Substance Use Type: None - Medications Home Medications: Home Medications Medication Instructions Recorded Confirmed Last Taken Type Acetaminophen [Acetaminophen TAB] 325 mg PO Q6H PRN #15 tablet 04/16/19 Unknown Rx HYDROcodone/APAP 5-325 [[place] 1 each PO Q4H PRN #10 tablet 04/16/19 Unknown Rx 5-325 mg TAB] Ibuprofen [Motrin] 800 mg PO Q8HR PRN #6 tablet 04/16/19 Unknown Rx Pantoprazole [Protonix] 40 mg PO QDAY #7 tablet 04/16/19 Unknown Rx levoFLOXacin [Levaquin] 750 mg PO QDAY #5 tablet 04/16/19 Unknown Rx methylPREDNISolone [Medrol 4MG 1 tab PO DAILY #1 tab.ds.pk 04/16/19 Unknown Rx DOSEPAK (21 tabs)] Hyoscyamine Subl [Levsin Sl 0.125 0.125 mg SL Q6HR PRN #10 tab 06/18/19 Unknown Rx TAB] Ondansetron [Zofran Odt] 4 mg PO Q8HR PRN #14 tab.rapdis 06/18/19 Unknown Rx ED Physical Exam - General Limitations: No Limitations General appearance: alert, in no apparent distress - Head Head exam: Present: atraumatic, normocephalic - Eye Eye exam: Present: normal appearance, PERRL, EOMI - ENT ENT exam: Present: mucous membranes moist - Respiratory Respiratory exam: Present: normal lung sounds bilaterally. Absent: respiratory distress, wheezes, rales, rhonchi, stridor, chest wall tenderness, accessory muscle use, decreased breath sounds, prolonged expiratory - Cardiovascular Cardiovascular Exam: Present: regular rate, normal rhythm, normal heart sounds. Absent: systolic murmur, diastolic murmur, rubs, gallop - GI/Abdominal GI/Abdominal exam: Present: soft, normal bowel sounds. Absent: distended, tenderness, guarding, rebound, rigid - Back Exam Back exam: Absent: CVA tenderness (R), CVA tenderness (L) - Neurological Exam Neurological exam: Present: alert, oriented X3 - Psychiatric Psychiatric exam: Present: normal affect, normal mood - Skin Skin exam: Present: warm, dry, intact ED Course Vital Signs 06/18/19 12:13 Temperature 99.3 F Pulse Rate 98 H Respiratory 15 Rate Blood Pressure 129/66 [Left] O2 Sat by Pulse 97 Oximetry ED Medical Decision Making - Lab Data Result diagrams: 06/18/19 12:40 06/18/19 12:40 Lab Results 06/18/19 06/18/19 06/18/19 Range/Units 12:40 12:40 12:40 WBC 7.2 (4.5-11.0) K/mm3 RBC 3.86 (3.65-5.03) M/mm3 Hgb 11.1 (10.1-14.3) gm/dl Hct 33.2 (30.3-42.9) % MCV 86 (79-97) fl MCH 29 (28-32) pg MCHC 34 (30-34) % RDW 15.2 (13.2-15.2) % Plt Count 299 (140-440) K/mm3 Add Manual Diff Complete Total Counted 100 Seg Neuts % (Manual) 63.0 (40.0-70.0) % Band Neutrophils % 0 % Lymphocytes % (Manual) 29.0 (13.4-35.0) % Reactive Lymphs % (Man) 0 % Monocytes % (Manual) 6.0 (0.0-7.3) % Eosinophils % (Manual) 2.0 (0.0-4.3) % Basophils % (Manual) 0 (0.0-1.8) % Metamyelocytes % 0 % Myelocytes % 0 % Promyelocytes % 0 % Blast Cells % 0 % Nucleated RBC % Not Reportable Seg Neutrophils # Man 4.5 (1.8-7.7) K/mm3 Band Neutrophils # 0.0 K/mm3 Lymphocytes # (Manual) 2.1 (1.2-5.4) K/mm3 Abs React Lymphs (Man) 0.0 K/mm3 Monocytes # (Manual) 0.4 (0.0-0.8) K/mm3 Eosinophils # (Manual) 0.1 (0.0-0.4) K/mm3 Basophils # (Manual) 0.0 (0.0-0.1) K/mm3 Metamyelocytes # 0.0 K/mm3 Myelocytes # 0.0 K/mm3 Promyelocytes # 0.0 K/mm3 Blast Cells # 0.0 K/mm3 WBC Morphology Not Reportable Hypersegmented Neuts Not Reportable Hyposegmented Neuts Not Reportable Hypogranular Neuts Not Reportable Smudge Cells Not Reportable Toxic Granulation Not Reportable Toxic Vacuolation Not Reportable Dohle Bodies Not Reportable Pelger-Huet Anomaly Not Reportable Castro Rods Not Reportable Platelet Estimate Consistent w auto Clumped Platelets Not Reportable Plt Clumps, EDTA Not Reportable Large Platelets Not Reportable Giant Platelets Not Reportable Platelet Satelliting Not Reportable Plt Morphology Comment Not Reportable RBC Morphology Not Reportable Dimorphic RBCs Not Reportable Polychromasia Not Reportable Hypochromasia Not Reportable Poikilocytosis Not Reportable Anisocytosis 1+ Microcytosis Not Reportable Macrocytosis Not Reportable Spherocytes Not Reportable Pappenheimer Bodies Not Reportable Sickle Cells Not Reportable Target Cells Not Reportable Tear Drop Cells Not Reportable Ovalocytes Not Reportable Helmet Cells Not Reportable [place] Bodies Not Reportable [place] Rings Not Reportable Nikky Cells Not Reportable Bite Cells Not Reportable Crenated Cell Not Reportable Elliptocytes Not Reportable Acanthocytes (Spur) Not Reportable Rouleaux Not Reportable Hemoglobin C Crystals Not Reportable Schistocytes Not Reportable Malaria parasites Not Reportable Jovan Bodies Not Reportable Hem Pathologist Commnt No Sodium 136 L (137-145) mmol/L Potassium 4.1 (3.6-5.0) mmol/L Chloride 100.1 (98-107) mmol/L Carbon Dioxide 23 (22-30) mmol/L Anion Gap 17 mmol/L BUN 10 (7-17) mg/dL Creatinine 0.5 L (0.7-1.2) mg/dL Estimated GFR > 60 ml/min BUN/Creatinine Ratio 20 % Glucose 136 H (65-100) mg/dL Calcium 9.1 (8.4-10.2) mg/dL Total Bilirubin 0.30 (0.1-1.2) mg/dL AST 9 (5-40) units/L ALT 9 (7-56) units/L Alkaline Phosphatase 54 (35-129) units/L Total Protein 7.6 (6.3-8.2) g/dL Albumin 4.2 (3.9-5) g/dL Albumin/Globulin Ratio 1.2 % Lipase 15 (13-60) units/L HCG, Qual Positive (Negative) Urine Color (Yellow) Urine Turbidity (Clear) Urine pH (5.0-7.0) Ur Specific [place] (1.003-1.030) Urine Protein (Negative) mg/dL Urine Glucose (UA) (Negative) mg/dL Urine Ketones (Negative) mg/dL Urine Blood (Negative) Urine Nitrite (Negative) Ur Reducing Substances Urine Bilirubin (Negative) Urine Ictotest Urine Urobilinogen (<2.0) mg/dL Ur Leukocyte Esterase (Negative) Urine WBC (Auto) (0.0-6.0) /HPF Urine RBC (Auto) (0.0-6.0) /HPF U Epithel Cells (Auto) (0-13.0) /HPF Urine Mucus /HPF 06/18/19 Range/Units 12:42 WBC (4.5-11.0) K/mm3 RBC (3.65-5.03) M/mm3 Hgb (10.1-14.3) gm/dl Hct (30.3-42.9) % MCV (79-97) fl MCH (28-32) pg MCHC (30-34) % RDW (13.2-15.2) % Plt Count (140-440) K/mm3 Add Manual Diff Total Counted Seg Neuts % (Manual) (40.0-70.0) % Band Neutrophils % % Lymphocytes % (Manual) (13.4-35.0) % Reactive Lymphs % (Man) % Monocytes % (Manual) (0.0-7.3) % Eosinophils % (Manual) (0.0-4.3) % Basophils % (Manual) (0.0-1.8) % Metamyelocytes % % Myelocytes % % Promyelocytes % % Blast Cells % % Nucleated RBC % Seg Neutrophils # Man (1.8-7.7) K/mm3 Band Neutrophils # K/mm3 Lymphocytes # (Manual) (1.2-5.4) K/mm3 Abs React Lymphs (Man) K/mm3 Monocytes # (Manual) (0.0-0.8) K/mm3 Eosinophils # (Manual) (0.0-0.4) K/mm3 Basophils # (Manual) (0.0-0.1) K/mm3 Metamyelocytes # K/mm3 Myelocytes # K/mm3 Promyelocytes # K/mm3 Blast Cells # K/mm3 WBC Morphology Hypersegmented Neuts Hyposegmented Neuts Hypogranular Neuts Smudge Cells Toxic Granulation Toxic Vacuolation Dohle Bodies Pelger-Huet Anomaly Castro Rods Platelet Estimate Clumped Platelets Plt Clumps, EDTA Large Platelets Giant Platelets Platelet Satelliting Plt Morphology Comment RBC Morphology Dimorphic RBCs Polychromasia Hypochromasia Poikilocytosis Anisocytosis Microcytosis Macrocytosis Spherocytes Pappenheimer Bodies Sickle Cells Target Cells Tear Drop Cells Ovalocytes Helmet Cells Jordan-[place] Bodies [place] Rings Nikky Cells Bite Cells Crenated Cell Elliptocytes Acanthocytes (Spur) Rouleaux Hemoglobin C Crystals Schistocytes Malaria parasites Jovan Bodies Hem Pathologist Commnt Sodium (137-145) mmol/L Potassium (3.6-5.0) mmol/L Chloride (98-107) mmol/L Carbon Dioxide (22-30) mmol/L Anion Gap mmol/L BUN (7-17) mg/dL Creatinine (0.7-1.2) mg/dL Estimated GFR ml/min BUN/Creatinine Ratio % Glucose (65-100) mg/dL Calcium (8.4-10.2) mg/dL Total Bilirubin (0.1-1.2) mg/dL AST (5-40) units/L ALT (7-56) units/L Alkaline Phosphatase (35-129) units/L Total Protein (6.3-8.2) g/dL Albumin (3.9-5) g/dL Albumin/Globulin Ratio % Lipase (13-60) units/L HCG, Qual (Negative) Urine Color Yellow (Yellow) Urine Turbidity Hazy (Clear) Urine pH 6.0 (5.0-7.0) Ur Specific [place] 1.026 (1.003-1.030) Urine Protein <15 mg/dl (Negative) mg/dL Urine Glucose (UA) Neg (Negative) mg/dL Urine Ketones Neg (Negative) mg/dL Urine Blood Neg (Negative) Urine Nitrite Neg (Negative) Ur Reducing Substances Not Reportable Urine Bilirubin Neg (Negative) Urine Ictotest Not Reportable Urine Urobilinogen < 2.0 (<2.0) mg/dL Ur Leukocyte Esterase Neg (Negative) Urine WBC (Auto) 2.0 (0.0-6.0) /HPF Urine RBC (Auto) 3.0 (0.0-6.0) /HPF U Epithel Cells (Auto) 14.0 H (0-13.0) /HPF Urine Mucus 2+ /HPF - Medical Decision Making pt is a 23 yo female who presents to the ED with c/o fatigue, N/V/D, lightheadedness that began 4 days ago. she denies any urinary sx, abd pain, fever, sick contacts, recent abx, recent camping. LNMP: January 2019, states she has irregular cycles. PMHx PCOS, HTN, prediabetes. allergy: penicillin. VSS. no abd tenderness on exam. pt given 1L of fluids, zofran, and levsin. pt states she feels much better. pt is tolerating PO intake. pt had no further episodes of emesis while in the ED. pt given prescription for zofran and levsin. advised to please take medication as prescribed. Drink plenty of fluids. Eat a bland diet over the next few days. Follow up with a primary doctor in the next 2-3 days. Return to the emergency room for any new or worsening symptoms. Critical care attestation.: If time is entered above; I have spent that time in minutes in the direct care of this critically ill patient, excluding procedure time. ED Disposition Clinical Impression: Nausea vomiting and diarrhea Disposition: DC-01 TO HOME OR SELFCARE Is pt being admited?: No Does the pt Need Aspirin: No Condition: Stable Instructions: Acute Nausea and Vomiting (ED) Additional Instructions: Please take medication as prescribed. Drink plenty of fluids. Eat a bland diet over the next few days. Follow up with a primary doctor in the next 2-3 days. Return to the emergency room for any new or worsening symptoms. Prescriptions: Hyoscyamine Subl [Levsin Sl 0.125 TAB] 0.125 mg SL Q6HR PRN #10 tab PRN Reason: abdominal cramping Ondansetron [Zofran Odt] 4 mg PO Q8HR PRN #14 tab.rapdis PRN Reason: Nausea And Vomiting Referrals: ZARI PRESTON MD [Primary Care Provider] - 2-3 Days Time of Disposition: 15:03 Print Language: CAPE VERDEAN
== END 2019-06-18 15:15 | disposition home or self-care (01) ==
LOC: ED 11:56
DX: R11.2 Nausea with vomiting, unspecified (principal); R19.7 Diarrhea, unspecified; R42 Dizziness and giddiness; J45.909 Unspecified asthma, uncomplicated; E66.01 Morbid (severe) obesity due to excess calories; Z88.1 Allergy status to other antibiotic agents; Z88.0 Allergy status to penicillin
CPT/HCPCS: 36415; 80053; 81001; 83690; 84703; 85007; 85025; 96361; 96374; 99283; J2405; J7030

== ENCOUNTER 2019-07-08 02:55 | Emergency (ER) | payer SELFPAY ==
[2019-07-08 03:01] VITALS: BP 128/74
[2019-07-08] MEDS ORDERED: TYLENOL PO ONE (03:42)
[2019-07-08 03:48] LABS: Bilirubin,Urine NEG (Negative); Blood,Urine MOD (Negative); Color,Urine Yellow (Yellow); Mucus,Urine 2+ /HPF; Protein,Urine <15 mg/dL mg/dL (Negative)
[2019-07-08 04:10] LABS: Basophils # (Auto) 0.1 K/mm3 (0.0-0.1); Basophils % (Auto) 0.8 % (0.0-1.8); Eosinophils # (Auto) 0.1 K/mm3 (0.0-0.4); Eosinophils % (Auto) 1.1 % (0.0-4.3); Hemoglobin 11.1 gm/dl (10.1-14.3); Lymphocytes # (Auto) 2.9 K/mm3 (1.2-5.4); Lymphocytes % (Auto) 35.5 % (13.4-35.0); Mean Corpuscular HGB Conc 35 % (30-34); Mean Corpuscular Volume 85 fl (79-97); Monocytes # (Auto) 0.5 K/mm3 (0.0-0.8); Monocytes % (Auto) 5.9 % (0.0-7.3); Platelet Count 294 K/mm3 (140-440); Red Blood Count 3.76 M/mm3 (3.65-5.03); Red Cell Distribution Width 14.7 % (13.2-15.2)
[2019-07-08 04:33] LABS: Alanine Aminotransferase 7 units/L (7-56); Albumin 3.8 g/dL (3.9-5); BUN/Creatinine Ratio 22; Blood Urea Nitrogen 11 mg/dL (7-17); Calcium 9.1 mg/dL (8.4-10.2); Hemolysis Index 0
--- NOTE | 2019-07-08 05:07 | Emergency Department Report ---
ED Abdominal Pain HPI - General Chief Complaint: Abdominal Pain Stated Complaint: ABD PAIN/ Time Seen by Provider: 07/08/19 04:00 Source: patient Mode of arrival: Ambulatory Limitations: No Limitations - History of Present Illness Initial Comments: Patient is a A0 23-year-old -[place] female who is approximately 6 weeks gestation who presents to the ED with acute onset persistent diffuse abdominal pain and nausea for the last 3 days. Patient states that the pain is intermittent but persistent. Patient stated that she tested positive for 3 days ago after the pain started. Patient denies fever, chills, vaginal bleeding, dysuria, urinary frequency and urgency, vaginal bleeding, headache, chest pain, shortness of breath, diarrhea, dizziness or sore throat. MD Complaint: abdominal pain -: Sudden, days(s) (2) Location: diffuse Radiation: none Migration to: no migration Severity: moderate Severity scale (0 -10): 5 Quality: cramping, aching, sharp Consistency: intermittent Improves With: nothing Worsens With: nothing Context: other ( tested positive ) Associated Symptoms: denies other symptoms, nausea. denies: vomiting, diarrhea, fever, chills, constipation, dysuria, hematemesis, hematochezia, melena, hematuria, anorexia, syncope, other - Related Data LMP Date: 05/08/19 Previous Rx's Medication Instructions Recorded Last Taken Type Acetaminophen [Acetaminophen TAB] 325 mg PO Q6H PRN #15 tablet 04/16/19 Unknown Rx HYDROcodone/APAP 5-325 [[place] 1 each PO Q4H PRN #10 tablet 04/16/19 Unknown Rx 5-325 mg TAB] Ibuprofen [Motrin] 800 mg PO Q8HR PRN #6 tablet 04/16/19 Unknown Rx Pantoprazole [Protonix] 40 mg PO QDAY #7 tablet 04/16/19 Unknown Rx levoFLOXacin [Levaquin] 750 mg PO QDAY #5 tablet 04/16/19 Unknown Rx methylPREDNISolone [Medrol 4MG 1 tab PO DAILY #1 tab.ds.pk 04/16/19 Unknown Rx DOSEPAK (21 tabs)] Hyoscyamine Subl [Levsin Sl 0.125 0.125 mg SL Q6HR PRN #10 tab 06/18/19 Unknown Rx TAB] Ondansetron [Zofran Odt] 4 mg PO Q8HR PRN #14 tab.rapdis 06/18/19 Unknown Rx Dicyclomine [Bentyl] 20 mg PO Q6H PRN #24 tablet 07/08/19 Unknown Rx Promethazine [Phenergan] 25 mg PO Q6HR PRN #30 tab 07/08/19 Unknown Rx raNITIdine HCl [Zantac] 150 mg PO Q12H #30 tablet 07/08/19 Unknown Rx Allergies Allergy/AdvReac Type Severity Reaction Status Date / Time clindamycin Allergy Swelling Verified 04/15/19 12:14 Penicillins Allergy Swelling Verified 04/13/19 12:25 ED Review of Systems ROS: Stated complaint: ABD PAIN/ Other details as noted in HPI Constitutional: denies: chills, fever Eyes: denies: eye pain, eye discharge, vision change ENT: denies: ear pain, throat pain Respiratory: denies: cough, shortness of breath, wheezing Cardiovascular: denies: chest pain, palpitations Endocrine: no symptoms reported Gastrointestinal: abdominal pain, nausea. denies: diarrhea Genitourinary: denies: urgency, dysuria, discharge Musculoskeletal: denies: back pain, joint swelling, arthralgia Skin: denies: rash, lesions Neurological: denies: headache, weakness, paresthesias Psychiatric: denies: anxiety, depression Hematological/Lymphatic: denies: easy bleeding, easy bruising ED Past Medical Hx - Past Medical History Previous Medical History?: Yes Hx Congestive Heart Failure: No Hx Diabetes: No Hx Asthma: Yes Hx COPD: No Additional medical history: PCOS, Morbid Obesity - Surgical History Past Surgical History?: Yes Additional Surgical History: X1 - Social History Smoking Status: Never Smoker Substance Use Type: None - Medications Home Medications: Home Medications Medication Instructions Recorded Confirmed Last Taken Type Acetaminophen [Acetaminophen TAB] 325 mg PO Q6H PRN #15 tablet 04/16/19 Unknown Rx HYDROcodone/APAP 5-325 [[place] 1 each PO Q4H PRN #10 tablet 04/16/19 Unknown Rx 5-325 mg TAB] Ibuprofen [Motrin] 800 mg PO Q8HR PRN #6 tablet 04/16/19 Unknown Rx Pantoprazole [Protonix] 40 mg PO QDAY #7 tablet 04/16/19 Unknown Rx levoFLOXacin [Levaquin] 750 mg PO QDAY #5 tablet 04/16/19 Unknown Rx methylPREDNISolone [Medrol 4MG 1 tab PO DAILY #1 tab.ds.pk 04/16/19 Unknown Rx DOSEPAK (21 tabs)] Hyoscyamine Subl [Levsin Sl 0.125 0.125 mg SL Q6HR PRN #10 tab 06/18/19 Unknown Rx TAB] Ondansetron [Zofran Odt] 4 mg PO Q8HR PRN #14 tab.rapdis 06/18/19 Unknown Rx Dicyclomine [Bentyl] 20 mg PO Q6H PRN #24 tablet 07/08/19 Unknown Rx Promethazine [Phenergan] 25 mg PO Q6HR PRN #30 tab 07/08/19 Unknown Rx raNITIdine HCl [Zantac] 150 mg PO Q12H #30 tablet 07/08/19 Unknown Rx ED Physical Exam - General Limitations: No Limitations General appearance: alert, in no apparent distress - Head Head exam: Present: atraumatic, normocephalic, normal inspection - Eye Eye exam: Present: normal appearance, PERRL, EOMI. Absent: scleral icterus, conjunctival injection - ENT ENT exam: Present: normal exam, normal orophraynx, mucous membranes moist, TM's normal bilaterally, normal external ear exam - Neck Neck exam: Present: normal inspection, full ROM. Absent: tenderness, meningismus, lymphadenopathy, thyromegaly - Respiratory Respiratory exam: Present: normal lung sounds bilaterally. Absent: respiratory distress, wheezes, rales, rhonchi, chest wall tenderness, accessory muscle use - Cardiovascular Cardiovascular Exam: Present: regular rate, normal rhythm, normal heart sounds. Absent: systolic murmur, diastolic murmur, rubs, gallop - GI/Abdominal GI/Abdominal exam: Present: soft, normal bowel sounds. Absent: distended, tenderness, guarding, rebound, rigid, hyperactive bowel sounds, hypoactive bowel sounds, mass - Rectal Rectal exam: Present: deferred - Extremities Exam Extremities exam: Present: normal inspection, full ROM, normal capillary refill - Back Exam Back exam: Present: normal inspection, full ROM. Absent: tenderness, CVA tenderness (R), CVA tenderness (L), muscle spasm, paraspinal tenderness, vertebral tenderness - Neurological Exam Neurological exam: Present: alert, oriented X3, CN II-XII intact, normal gait, reflexes normal - Psychiatric Psychiatric exam: Present: normal affect, normal mood - Skin Skin exam: Present: warm, dry, intact, normal color. Absent: rash ED Course Vital Signs 07/08/19 07/08/19 02:56 03:55 Temperature 98.4 F Pulse Rate 90 Respiratory 18 20 Rate Blood Pressure 128/74 O2 Sat by Pulse 96 Oximetry - Reevaluation(s) Reevaluation #1: 07/08/19 05:07 This is a 23-year-old female who presented to the ED with diffuse abdominal pain after she discovered that she was . In the ED, patient is alert and oriented 3 and is not in distress. Lab test results were reviewed [place] [address].0. The rest of the lab test results are nonactionable. Patient was treated for pain with Tylenol in the ED and transvaginal ultrasound was also ordered. The transvaginal ultrasound shows a live single IUP of approximately 8 weeks and 6 days with a heart rate of 161 bpm. On reevaluation, patient's pain is well controlled with pain medications. Patient was discharged home and advised to maintain a complete pel ada rest and to follow-up with the PAIN MANAGEMENT PHYSICIAN physician in 3 to 5 days for reevaluation or return to the ED immediately if symptoms get worse. 07/08/19 06:05 ED Medical Decision Making - Lab Data Result diagrams: 07/08/19 03:57 07/08/19 03:57 - Radiology Data Radiology results: report reviewed, image reviewed Transvaginal US shows a Live single IUP of approximately 8 weeks, 6 days with a FHR of 161 bpm - Medical Decision Making This is a 23-year-old female who presented to the ED with diffuse abdominal pain after she discovered that she was . In the ED, patient is alert and oriented 3 and is not in distress. Lab test results were reviewed and are significant for issues [place] to 57621.0. The rest of the lab test results are nonactionable. Patient was treated for pain with Tylenol in the ED and transvaginal ultrasound was also ordered. The transvaginal ultrasound shows a live single IUP of approximately 8 weeks and 6 days with a heart rate of 161 bpm. On reevaluation, patient's pain is well controlled with pain medications. Patient was discharged home and advised to maintain a complete pelvic rest and to follow-up with the PAIN MANAGEMENT PHYSICIAN physician in 3 to 5 days for reevaluation or return to the ED immediately if symptoms get worse. - Differential Diagnosis abdominal pain, acute UTI; Constipation; IUP , GERD Critical care attestation.: If time is entered above; I have spent that time in minutes in the direct care of this critically ill patient, excluding procedure time. ED Disposition Clinical Impression: Abdominal pain during in first trimester GERD (gastroesophageal reflux disease) Qualifiers: Esophagitis presence: without esophagitis Qualified Code(s): K21.9 - Gastro- esophageal reflux disease without esophagitis Disposition: TO HOME OR SELFCARE Is pt being admited?: No Does the pt Need Aspirin: No Condition: Stable Instructions: Abdominal Pain (ED) Additional Instructions: Take medications with food, drink plenty of fluids and follow-up with your SENIOR SUPPORT ANALYST physician 3-5 days for reevaluation. Return to the ED immediately if symptoms get worse. Prescriptions: Dicyclomine [Bentyl] 20 mg PO Q6H PRN #24 tablet PRN Reason: Pain , Severe (7-10) Promethazine [Phenergan] 25 mg PO Q6HR PRN #30 tab PRN Reason: Nausea raNITIdine HCl [Zantac] 150 mg PO Q12H #30 tablet Referrals: PRIMARY CARE, [Primary Care Provider] - 3-5 Days Time of Disposition: 05:12 Print Language: IRISH
--- NOTE | 2019-07-08 05:45 | Ultrasound Report ---
ULTRASOUND OBSTETRIC INDICATION / CLINICAL INFORMATION: : abdominal pain. TECHNIQUE: 8 Transabdominal. COMPARISON: None available. FINDINGS: GESTATIONAL SAC: Well-defined oval shape and intrauterine in location. YOLK SAC: No significant abnormality. EMBRYO/FETUS: No significant abnormality. - Waves-Rump Length = 2.21 cm = 8 weeks, 6 day(s). - Heart Rate, beats per minute (if present) = 161 ADNEXA: No significant abnormality. FREE FLUID: None. ADDITIONAL FINDINGS: None. IMPRESSION: 1. Single, living intrauterine with estimated sonographic age of 8 weeks, 6 day(s). Signer Name: Macho Fowler MD Signed: 07/08/2019 5:40 AM Workstation Name: [id number]
== END 2019-07-08 06:35 | disposition home or self-care (01) ==
LOC: ED 02:55
DX: O99.611 Diseases of the digestive system complicating pregnancy, first trimester (principal); K21.9 Gastro-esophageal reflux disease without esophagitis; Z88.1 Allergy status to other antibiotic agents; Z3A.08 8 weeks gestation of pregnancy
CPT/HCPCS: 36415; 76801; 80053; 81001; 84702; 85025

== ENCOUNTER 2019-09-04 03:06 | Emergency (ER) | payer MEDICAID ==
[2019-09-04 03:27] VITALS: BP 103/51
[2019-09-04 04:17] LABS: Basophils % (Auto) 0.3 % (0.0-1.8); Eosinophils # (Auto) 0.1 K/mm3 (0.0-0.4); Eosinophils % (Auto) 1.1 % (0.0-4.3); Hematocrit 29.4 % (30.3-42.9); Hemoglobin 10.1 gm/dl (10.1-14.3); Lymphocytes # (Auto) 2.6 K/mm3 (1.2-5.4); Lymphocytes % (Auto) 33.7 % (13.4-35.0); Mean Corpuscular HGB Conc 34 % (30-34); Mean Corpuscular Volume 86 fl (79-97); Monocytes # (Auto) 0.5 K/mm3 (0.0-0.8); Monocytes % (Auto) 6.7 % (0.0-7.3); Platelet Count 328 K/mm3 (140-440); Red Blood Count 3.42 M/mm3 (3.65-5.03); Red Cell Distribution Width 14.7 % (13.2-15.2)
[2019-09-04 04:30] LABS: Alanine Aminotransferase 6 units/L (7-56); Albumin 3.6 g/dL (3.9-5); BUN/Creatinine Ratio 25; Blood Urea Nitrogen 10 mg/dL (7-17); Hemolysis Index 0
[2019-09-04 05:25] LABS: Bilirubin,Urine NEG (Negative); Blood,Urine NEG (Negative); Calcium Oxalate Crystals,Urine 2+; Mucus,Urine 3+ /HPF
[2019-09-04 05:29] LABS: Color,Urine RED (Yellow)
== END 2019-09-04 05:00 | disposition left against medical advice (07) ==
LOC: ED 03:06
DX: O26.892 Other specified pregnancy related conditions, second trimester (principal); R10.30 Lower abdominal pain, unspecified; Z53.21 Procedure and treatment not carried out due to patient leaving prior to being seen by health care provider; Z3A.18 18 weeks gestation of pregnancy
CPT/HCPCS: 36415; 80053; 81001; 84703; 85025

== ENCOUNTER 2019-10-07 00:25 | Outpatient (CLI) | payer OTHER ==
[2019-10-07] MEDS ORDERED: LACTATED RINGERS 500 ML IV ONE (00:47)
[2019-10-07 01:17] LABS: Bilirubin,Urine NEG (Negative); Blood,Urine NEG (Negative); Color,Urine Yellow (Yellow); Mucus,Urine 1+ /HPF
[2019-10-07 01:37] VITALS: BP 119/66
== END 2019-10-07 02:02 | disposition home or self-care (01) ==
LOC: TRG 00:25
PROVIDERS: ATTEND Obstetrics & Gynecology
DX: O21.2 Late vomiting of pregnancy (principal); O26.892 Other specified pregnancy related conditions, second trimester; R10.30 Lower abdominal pain, unspecified; O99.512 Diseases of the respiratory system complicating pregnancy, second trimester; J00 Acute nasopharyngitis [common cold]; O24.419 Gestational diabetes mellitus in pregnancy, unspecified control; Z3A.22 22 weeks gestation of pregnancy
CPT/HCPCS: 81001; J7120; Q0177

== ENCOUNTER 2019-11-17 01:43 | Outpatient (CLI) | payer OTHER ==
[2019-11-17] MEDS ORDERED: LACTATED RINGERS 1,000 ML IV ONE (03:34)
[2019-11-17 04:11] VITALS: BP 116/64
[2019-11-17] MEDS ORDERED: ACETAMINOPHEN 500 MG TAB PO ONE (04:15)
--- NOTE | 2019-11-17 04:30 | Ultrasound Report ---
Limited transabdominal OB pelvic ultrasound INDICATION / CLINICAL INFORMATION: Cervical length. COMPARISON: None available. FINDINGS: The uterine cervix measures 3.2 cm in length and the internal os is closed. There is a single intraut erine in a breech presentation. The heart rate is 145 bpm. The placenta is located an teriorly, is grade 0 and is free of the os. Signer Name: Raymond Soni MD Signed: 11/17/2019 4:26 AM Workstation Name: [id number]
[2019-11-17 04:40] LABS: Bacteria,Urine 1+ /HPF (Negative); Bilirubin,Urine NEG (Negative); Blood,Urine NEG (Negative); Calcium Oxalate Crystals,Urine 3+; Color,Urine Yellow (Yellow); Mucus,Urine 1+ /HPF; Urobilinogen,Urine < 2.0 mg/dL (<2.0)
--- NOTE | 2019-11-17 06:43 | Event Note ---
Date: 11/17/19 (Pt states she is feeling better.) Pt is a 23 y.o. @ 28 wks who presented to triage due to pelvic, lower abdominal pain and nausea. Upon assessment in triage pt was found to have ctxs and an IV was started and she was given a liter of fluid. She was also given 1000mg of Tylenol for pain. She had an ultrasound for cervical length and was found to be WNL @ 3.08. She has stopped pat and states that she is feeling a lot better. Discussed with patient the need to stay hydrated, use of Tylenol and heat for pain, and maternity belt for support. Plan to discharge patient home. Dr. Russell aware.
== END 2019-11-17 06:48 | disposition home or self-care (01) ==
LOC: TRG 01:43
PROVIDERS: ATTEND Obstetrics & Gynecology
DX: O62.9 Abnormality of forces of labor, unspecified (principal); O26.893 Other specified pregnancy related conditions, third trimester; R25.2 Cramp and spasm; O32.1XX0 Maternal care for breech presentation, not applicable or unspecified; O13.3 Gestational [pregnancy-induced] hypertension without significant proteinuria, third trimester; O24.419 Gestational diabetes mellitus in pregnancy, unspecified control; O99.283 Endocrine, nutritional and metabolic diseases complicating pregnancy, third trimester; E05.90 Thyrotoxicosis, unspecified without thyrotoxic crisis or storm; Z3A.28 28 weeks gestation of pregnancy
CPT/HCPCS: 76815; 81001; 96360; J7120

== ENCOUNTER 2019-12-04 15:42 | Outpatient (CLI) | payer OTHER ==
[2019-12-04] MEDS ORDERED: LACTATED RINGERS 1,000 ML IV SCH (16:00)
[2019-12-04 16:14] VITALS: BP 121/64
[2019-12-04 16:17] LABS: Bilirubin,Urine NEG (Negative); Blood,Urine NEG (Negative); Color,Urine Yellow (Yellow); Mucus,Urine 1+ /HPF; Urobilinogen,Urine < 2.0 mg/dL (<2.0)
--- NOTE | 2019-12-04 16:34 | Event Note ---
Date: 12/04/19 (abdominal pain and cramping.) Pt is 24 y.o. @ 31 wks with c/o abdominal pain and cramping. States that this has been occurring all day and has become worse. Cervical exam cl/th/oop, category 1 strip, no ctxs noted. Plan is for IV fluids for hydration and Tylenol for pain. I explained this plan to the pt and she agrees.
[2019-12-04] MEDS ORDERED: ACETAMINOPHEN 500 MG TAB PO ONE (16:50)
--- NOTE | 2019-12-04 18:33 | Event Note ---
Date: 12/04/19 (Pt states she feels a little bit better) Pt states that she is feeling a little bit better. We discussed common discomforts of and that she will feel some lower back and hip pain d/t growing uterus and maternal weight. She states that she has been walking more than usual and we discussed cutting back on walking for just a few days to see if that brings some relief. Also use of heat to hips and lower back, and taking Tylenol. And not to use heating pad directly on abdomen. Denies vag bleeding, LOF. No ctxs noted on the monitor and none palpated. Category 1 strip and pt states there is positive movement. Cervical exam remains unchanged at cl/th/oop. Pt discharged home with strict labor precautions. Next visit in the office is Dec 16, and next high risk appointment is 12/06. Encouraged to keep all appointments.
== END 2019-12-04 18:53 | disposition home or self-care (01) ==
LOC: TRG 15:42
PROVIDERS: ATTEND Obstetrics & Gynecology
DX: O26.893 Other specified pregnancy related conditions, third trimester (principal); R25.2 Cramp and spasm; R10.9 Unspecified abdominal pain; M25.50 Pain in unspecified joint; R06.02 Shortness of breath; O60.03 Preterm labor without delivery, third trimester; O99.343 Other mental disorders complicating pregnancy, third trimester; F32.9 Major depressive disorder, single episode, unspecified; O99.283 Endocrine, nutritional and metabolic diseases complicating pregnancy, third trimester; O24.419 Gestational diabetes mellitus in pregnancy, unspecified control; Z3A.31 31 weeks gestation of pregnancy
CPT/HCPCS: 59025; 81001; 96360; 96361; J7120

== ENCOUNTER 2020-01-06 08:23 | Outpatient (CLI) | payer OTHER ==
[2020-01-06 09:21] VITALS: BP 119/58
[2020-01-06] MEDS ORDERED: LACTATED RINGERS 1,000 ML IV ONE (09:34)
[2020-01-06] MEDS ORDERED: LACTATED RINGERS 1,000 ML ONE (09:35)
[2020-01-06] MEDS ORDERED: ACETAMINOPHEN 500 MG TAB PO SCH (09:45)
--- NOTE | 2020-01-06 10:53 | Ultrasound Report ---
Biophysical profile INDICATION: Decreased movement COMPARISON: None FINDINGS: breathing movement: 2/2 movement: 2/2 posture and tone: 2/2 Qualitative amniotic fluid volume: 2/2 IMPRESSION: Total score for biophysical profile is 8/8 heart rate is 154 bpm Signer Name: Lui Morales MD Signed: 01/06/2020 10:49 AM Workstation Name: [id number]
[2020-01-06] MEDS ORDERED: TERBUTALINE 1 MG/1 ML INJ SUB-Q ONE (11:26)
[2020-01-06 13:40] LABS: Bilirubin,Urine NEG (Negative); Blood,Urine SM (Negative); Color,Urine Yellow (Yellow); Mucus,Urine FEW /HPF; Urobilinogen,Urine < 2.0 mg/dL (<2.0)
== END 2020-01-06 12:40 | disposition home or self-care (01) ==
LOC: TRG 08:23
PROVIDERS: ATTEND Obstetrics & Gynecology
DX: O62.9 Abnormality of forces of labor, unspecified (principal); O36.8130 Decreased fetal movements, third trimester, not applicable or unspecified; O13.3 Gestational [pregnancy-induced] hypertension without significant proteinuria, third trimester; O24.419 Gestational diabetes mellitus in pregnancy, unspecified control; O99.283 Endocrine, nutritional and metabolic diseases complicating pregnancy, third trimester; E05.90 Thyrotoxicosis, unspecified without thyrotoxic crisis or storm; Z3A.35 35 weeks gestation of pregnancy
CPT/HCPCS: 76819; 81001; 96360; 96372; J3105; J7120

== ENCOUNTER 2020-01-07 12:03 | Inpatient (IN) | payer OTHER ==
--- NOTE | 2020-01-07 13:24 | Ultrasound Report ---
LIMITED OBSTETRIC ULTRASOUND WITH BIOPHYSICAL PROFILE HISTORY: A movement. COMPARISON: 01/06/2020 TECHNIQUE: Limited OB ultrasound performed with biophysical profile. FINDINGS: Gestation: Parra intrauterine fetus. Presentation: Breech Amniotic Fluid Index: 20.7 cm ANATOMY: Detailed anatomic survey was not requested. Somatic activity is subjectively within normal limits. C ardiac activity is regular rate at155 beats per minute. BIOPHYSICAL PROFILE: Movement: 2 Tone: 2 Breathin Amniotic Fluid: 2 Total: 8 out of 8 IMPRESSION: 1. Single living intrauterine breech at approximately 36 weeks with no significant abnormal ity identified. 2. Biophysical Profile 8 out of 8. Signer Name: Triston Costello MD Signed: 01/07/2020 1:20 PM Workstation Name: [id number]
[2020-01-07] MEDS ORDERED: LACTATED RINGERS 1,000 ML ONE ×2 (15:32→15:34)
[2020-01-07] MEDS ORDERED: ALUM-MAG HYDROXIDE-SIMETHICONE 200-200-20MG/5ML ORAL LIQD 30 ML PO PRN (15:58)
[2020-01-07] MEDS ORDERED: DEXTROSE 50% IN WATER (25GM) 50 ML SYRINGE IV PRN ×2 (15:58→16:04)
[2020-01-07] MEDS ORDERED: SIMETHICONE 80 MG CHEW TAB PO PRN (15:58)
[2020-01-07] MEDS ORDERED: diphenhydrAMINE 25 MG CAP PO PRN (15:58)
[2020-01-07] MEDS ORDERED: DOCUSATE SODIUM 100 MG CAP PO PRN (15:58)
[2020-01-07] MEDS ORDERED: ACETAMINOPHEN 325 MG TAB PO PRN (15:58)
[2020-01-07] MEDS ORDERED: MAGNESIUM HYDROXIDE (MOM) ORAL LIQD UDC PO PRN (15:58)
[2020-01-07] MEDS ORDERED: LACTATED RINGERS 1,000 ML IV SCH (16:00)
--- NOTE | 2020-01-07 16:34 | History and Physical Report ---
History of Present Illness Date of examination: 01/07/20 Date of admission: 01/07/20 12:04 Chief complaint: decreased FM and contractions, prev c/s History of present illness: EDC Confirmation: 02/04/2020 Past History : 2 Term Births: 1 Premature Births: 0 Living Children: 1 Para: 1 Mult. Births: 0 Prev : 1 Prev. attempt? 0 Aborta: 0 Elect. Ab: 0 Spont. Ab: 0 Ectopics: 0 # 1 Delivery date: 05/2014 Weeks Gestation: term labor: no Delivery type: Infant Sex: Female weight: 9#1 Comments: c/s for distress Past Medical History: obesity - BMI 50 PCOS Past Surgical History: c/s 05/2019 - oral surgery Past Medical History Surgery (Non-counsel): c/s 05/2019 - oral surgery Abnormal PAP: negative Family Hx: HTN - multiple aunts and uncles DM - uncle breast CA - maternal aunt Social Hx: no ETOH/Drugs/smoking unemployed no pets Infection History Hx of STD: none HIV Risk Eval: low risk Hepatitis B Risk Eval: low risk Personal hx. of genital herpes: no Partner hx. of genital herpes: no Rash, Viral, or Febrile illness since last LMP? no Varicella/Chicken Pox Status: Immunized Genetic History Congenital Heart Defect: Mom: no Dad: no Jung Disease: Mom: no Dad: no Thalassemia Mom: no Dad: no Neural Tube Defect Mom: no Dad: no Down's Syndrome Mom: no Dad: no Vincent-Sachs Mom: no Dad: no Sickle Cell Disease/Trait Mom: no Dad: no Hemophilia Mom: no Dad: no Muscular Dystrophy Mom: no Dad: no Cystic Fibrosis Mom: no Dad: no Bend Chorea Mom: no Dad: no Mental Retardation Mom: no Dad: no Fragile X Mom: no Dad: no Other Genetic/Chromosomal Disorder Mom: no Dad: no Child w/other defect Mom: no Dad: no Enviromental Exposures Xray Exposure: no Medication, drug, or alcohol use since LMP: no Chemical/Other Exposure: no Exposure to Cat Liter: no Hx of Parvovirus (Fifth Disease): no Occupational Exposure to Children: none Active Medications (reviewed today): None Current Allergies (reviewed today): No known allergies Past History Past Medical History: other (see HPI) Past Surgical History: other (see 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) 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) Family/Genetic History: other (see HPI) - Obstetrical History Expected Date of Delivery: 02/04/20 Actual Gestation: 36 Week(s) 0 Day(s) : 2 Para: 1 Number of Pregnancies: 0 Spontaneous Abortions: 0 Induced : 0 Number of Living Children: 1 Medications and Allergies Allergies Allergy/AdvReac Type Severity Reaction Status Date / Time No Known Allergies Allergy Verified 11/17/19 03:44 Home Medications Medication Instructions Recorded Confirmed Last Taken Type No Known Home Medications [No 01/06/20 01/06/20 Unknown History Reported Home Medications] Active Meds: Active Medications Acetaminophen (Tylenol) 650 mg PO Q6H PRN PRN Reason: Pain MILD(1-3)/Fever >100.5/GRIER Al Hydrox/Mg Hydrox/Simethicone (Alum-Mag Hydrox-Simeth [phone]/5ml) 30 ml PO Q6H PRN PRN Reason: Indigestion Dextrose (D50w (25gm) Syringe) 50 ml IV Q30MIN PRN; Protocol PRN Reason: Hypoglycemia Diphenhydramine HCl (Benadryl) 25 mg PO Q6H PRN PRN Reason: Itching Docusate Sodium (Colace) 100 mg PO Q12H PRN PRN Reason: Constipation Lactated Ringer's (Lactated Ringers) 1,000 mls @ 125 mls/hr IV DIRECT SILVINA Insulin Human Regular (Humulin R) 0 units SUB-Q Q6HR SILVINA; Protocol Magnesium Hydroxide (Milk Of Magnesia) 30 ml PO QHS PRN PRN Reason: Laxative Effect Multivitamins/Iron/Calcium ( Vitamin) 1 each PO QDAY SILVINA Simethicone (Mylicon) 80 mg PO Q6H PRN PRN Reason: Gas pain Review of Systems All systems: negative - Vital Signs Vital signs: Vital Signs Pulse BP 104 H 121/67 01/07/20 14:31 01/07/20 14:31 Temp Pulse Resp BP Pulse Ox 106 H 121/67 97 01/07/20 16:21 01/07/20 14:31 01/07/20 16:21 - Physical Exam Breasts: Positive: normal Cardiovascular: Regular rate Lungs: Positive: Clear to auscultation, Normal air movement Abdomen: Positive: normal appearance, soft Genitourinary (Female): Positive: normal external genitalia, normal perenium Vulva: both: normal Vagina: Positive: normal moisture Uterus: Positive: normal size, normal contour Anus/Rectum: Positive: normal perianal skin Extremities: Positive: normal - Obstetrical FHR: other (CAT prior to u/s, very difficult to monitor d/t maternal habitus) Uterine Contraction Monitor Mode: External Cervical Dilatation: 0.5 Cervical Effacement Percentage: 60 station: -4 Uterine Contraction Pattern: Irregular Uterine Tone Measurement Phase: Contraction Uterine Contraction Intensity: Mild Results Abnormal lab results 01/07/20 Range/Units 13:29 Hemoglobin A1c 7.9 H (4-6) % All other labs normal. Assessment and Plan 24y/o @ 36+0 weeks admitted for monitoring. pt reports decreased fm only noting feeling baby move down with ctx. denies feeling kicks, turns or any additional movement. BPP 8/8. Continuos efm very difficult d/t maternal habitus. admission orders in EMR. - Patient Problems (1) 36 weeks gestation of Current Visit: Yes Status: Acute (2) Previous section Current Visit: Yes Status: Acute Plan to address problem: last meal @ 0700 remain NPO at this time (3) GDM, class A1 Current Visit: Yes Status: Acute Plan to address problem: diet controlled Consistent carbohydrate diet. A1c 7.9
[2020-01-07] MEDS: INSULIN REGULAR, HUMAN 100 UNITS/1 ML SUB-Q SCH (17:05)
[2020-01-07 19:20] LABS: Hematocrit 29.3 % (30.3-42.9); Hemoglobin 9.6 gm/dl (10.1-14.3); Mean Corpuscular HGB Conc 33 % (30-34); Mean Corpuscular Volume 75 fl (79-97); Platelet Count 276 K/mm3 (140-440); Red Blood Count 3.91 M/mm3 (3.65-5.03); Red Cell Distribution Width 16.7 % (13.2-15.2)
[2020-01-08] MEDS: INSULIN REGULAR, HUMAN 100 UNITS/1 ML SUB-Q SCH (00:30)
--- NOTE | 2020-01-08 06:56 | Discharge Summary ---
Providers - Providers Date of Admission: 01/07/20 12:04 Date of discharge: 01/08/20 (Pt desires d/c; reminded she must f/u with [facility]) Attending physician: MARY KATE TALAMANTES 01/07/20 15:58 Consult to Dietitian/Nutrition [CONS] Routine Physician Instructions: Reason For Exam: Reason for Consult: Diet education Primary care physician: MARY KATE TALAMANTES Hospitalization Reason for admission: other ( evaluation) Procedure details: BPP 06/13 RAMBO 20 Hospital course: Uncomplicated [facility]U visit Rested overnight Occasional ctx FHR Cat 1 tracing is difficult due to pt's body habitus. Condition at discharge: Good Disposition: DC-01 TO HOME OR SELFCARE - Discharge Diagnoses (1) 36 weeks gestation of Status: Acute Comment: f/u one week our office appt is scheduled (2) GDM, class A1 Status: Acute Comment: pt will f/u with [facility] given their number to call for appt (3) Previous section Status: Acute Comment: repeat c/s is scheduled Plan - Provider Discharge Summary Activity: other (as tolerated) Diet: other (GDM) Instructions: other (keep all appointments) Additional instructions: [] Smoking cessation referral if applicable(refer to patient education folder for contact #) [] Refer to [facility]'s [facility] Booklet Call your doctor immediately for: * Fever > 100.5 * Heavy vaginal bleeding ( >1 pad per hour) * Severe persistent headache * Shortness of breath * Reddened, hot, painful area to leg or breast * Drainage or odor from incision. * Keep incision clean and dry at all times and follow doctor's instructions regarding bathing/showering - Follow up plan Follow up: MARY KATE TALAMANTES MD [Primary Care Provider] - 01/14/20 10:00 am (Call with contractions, leaking fluid, vaginal bleeding, headache, blurred vision, chest pain. Monitor kick counts. Drink 6-8 bottles of water everyday. Call with any concerns. [phone].)
[2020-01-08] MEDS ORDERED: PRENATAL VIT27-FE FUMARATE-FOLIC ACID VIT TAB PO SCH (10:00)
[2020-01-08 10:17] VITALS: BP 124/88
== END 2020-01-08 10:35 | disposition home or self-care (01) | DRG 781 ==
LOC: TRG 12:03 → LD 12:04
PROVIDERS: ADMIT Obstetrics & Gynecology; ATTEND Obstetrics & Gynecology
DX: O24.419 Gestational diabetes mellitus in pregnancy, unspecified control (principal); O99.213 Obesity complicating pregnancy, third trimester; E66.9 Obesity, unspecified; Z82.49 Family history of ischemic heart disease and other diseases of the circulatory system; Z83.3 Family history of diabetes mellitus; Z80.3 Family history of malignant neoplasm of breast; Z3A.36 36 weeks gestation of pregnancy
CPT/HCPCS: 36415; 76815; 76819; 82239; 82962; 83036; 85027; 86850; 86900; 86901; G0378; J7120

== ENCOUNTER 2020-01-21 14:57 | Inpatient (IN) | payer OTHER ==
--- NOTE | 2020-01-21 15:56 | Emergency Department Report ---
HPI - General Chief Complaint: Dyspnea/Respdistress Time Seen by Provider: 01/21/20 15:14 - HPI HPI: 24-year-old -[place] female presents to the emergency department from home via EMS with complaint of a 2-day history of shortness of breath and cou ghing. Patient does not appear to have a fever here upon arrival but says that she has been having some fevers that she did take some Tylenol with codeine earlier prior to arrival. The patient had a here on 01/11/[address] Amaya and she was discharged a week ago on 01/14/2020. She follows with my FAMILY SERVICE AIDE. She has a past medical history of diabetes, polycystic ovarian syndrome. She denies any history of preeclampsia or -induced hypertension. ED Past Medical Hx - Past Medical History Hx Hypertension: No Hx Heart Attack/AMI: No Hx Congestive Heart Failure: No Hx Diabetes: Yes (SINCE 2013) Hx Deep Vein Thrombosis: No Hx Liver Disease: No Hx Renal Disease: No Hx Sickle Cell Disease: No Hx Seizures: No Hx Asthma: No Hx COPD: No Hx HIV: No Additional medical history: PCOS, Morbid Obesity. gestional diabetes. - Surgical History Hx Pacemaker: No Hx Internal Defibrillator: No Additional Surgical History: X1 - Social History Smoking Status: Never Smoker - Medications Home Medications: Home Medications Medication Instructions Recorded Confirmed Last Taken Type Vitamin 1 tab PO DAILY 01/10/20 01/21/20 01/01/20 History Tylenol 1 tab PO Q6H PRN 01/10/20 01/21/20 01/09/20 History Docusate Sodium [Colace] 100 mg PO BID PRN #60 capsule 01/11/20 01/21/20 Unknown Rx Ferrous Sulfate [Feosol 325 MG tab] 325 mg PO QDAY #60 tablet 01/11/20 01/21/20 Unknown Rx Ibuprofen [Motrin 800 MG tab] 800 mg PO Q8HR PRN #30 tablet 01/11/20 01/21/20 Unknown Rx oxyCODONE /ACETAMINOPHEN [Percocet 1 tab PO Q4HR #30 tab 01/11/20 01/21/20 Unknown Rx 5/325] ED Review of Systems ROS: Stated complaint: DIFFICULTY BREATHING Other details as noted in HPI Comment: All other systems reviewed and negative Constitutional: denies: chills, fever Eyes: denies: eye pain, vision change ENT: denies: ear pain, throat pain Respiratory: cough, shortness of breath Cardiovascular: denies: chest pain, palpitations Gastrointestinal: denies: abdominal pain, vomiting Genitourinary: denies: dysuria, discharge Musculoskeletal: denies: back pain, arthralgia Skin: denies: rash, lesions Neurological: denies: headache, weakness Physical Exam - Physical Exam Vital Signs: Vital Signs 01/21/20 15:12 Temperature 98.2 F Pulse Rate 101 H Respiratory 21 Rate Blood Pressure 158/92 [Left] O2 Sat by Pulse 96 Oximetry Physical Exam: GENERAL: The patient is well-developed well-nourished. HENT: Normocephalic. Atraumatic. Patient has moist mucous membranes. EYES: Extraocular motions are intact. NECK: Supple. Trachea is midline. CHEST/LUNGS: Rhonchi and coarse breath sounds heard bilaterally. A productive cough is heard during examination. There is some tachypnea but no accessory muscle use. HEART/CARDIOVASCULAR: Regular. There is mild tachycardia. There is no murmur. ABDOMEN: Abdomen is soft, nontender. Patient has normal bowel sounds. Obese habitus. SKIN: Skin is warm and dry. NEURO: The patient is awake, alert, and oriented. The patient is cooperative. The patient has no focal neurologic deficits. Normal speech. MUSCULOSKELETAL: There is no tenderness or deformity. There is no evidence of acute injury. ED Course Vital Signs 01/21/20 15:12 Temperature 98.2 F Pulse Rate 101 H Respiratory 21 Rate Blood Pressure 158/92 [Left] O2 Sat by Pulse 96 Oximetry ED Medical Decision Making - Lab Data Result diagrams: 01/21/20 16:05 01/21/20 16:05 - EKG Data -: EKG Interpreted by Me EKG shows normal: sinus rhythm, axis, intervals, QRS complexes, ST-T waves (T wave inversions to the septal leads) Rate: tachycardia (101 bpm) - EKG Data When compared to previous EKG there are: previous EKG unavailable Interpretation: other (Sinus rhythm, T wave inversions to the septal leads. No ST elevation [place]) - Radiology Data Radiology results: report reviewed, image reviewed interpreted by me: Chest x-ray shows some pulmonary vascular congestion, bilateral infiltrates and basilar pleural effusions. CT angiography of the chest with 2-D reconstructions INDICATION: Shortness of breath and elevated d-dimer Thin section axial images were obtained as well as 2-D reformatted MIP images in all 3 planes FINDINGS: There is no hilar or mediastinal adenopathy. There is a minimal left pleural effusion and small to moderate right pleural effusion. No pericardial fluid is seen. There is slight to moderate cardiomegaly present. There is extensive bilateral lung consolidation which is predominantly alveolar in pattern. No lung abscess or areas of cavitation.. There is no thoracic aortic aneurysm or dissection present. Routine axial images as well as 2-D reconstructions through the pulmonary arteries show no evidence of emboli. IMPRESSION: Extensive bilateral lung consolidation with associated effusions likely pneumonia. No PTE seen. - Medical Decision Making This patient presents to the emergency department via EMS with some acute shortness of breath and productive cough, as well as a subjective fever, that started about 1 week status post . On examination the patient has some tachypnea, a productive cough, and the lung sounds show some rhonchi and crackles. A chest x-ray was done that showed bilateral infiltrates and some basilar pleural effusions. Labs showed anemia with a hemoglobin of 9.6. Elevated d-dimer level of about 1800, elevated BNP of greater than 500 and the patient was negative for influenza a and B. She was given a breathing treatment, some Lasix for diuresis, Rocephin and azithromycin to cover for pneumonia. A CT angiography of the chest was done secondary to the elevated d- dimer level and it resulted as no pulmonary embolism, but there is extensive bilateral lung consolidation concerning for pneumonia as well as some pleural effusions. FAMILY SERVICE AIDE was contacted and consulted. They are going to hold off on magnesium infusion at this time secondary to the pulmonary edema. Cardiology has been consulted secondary to the acute CHF and possible cardiomyopathy. I have submitted the form to request for Covid-19 testing secondary to the patient's acute shortness of breath and bilateral groundglass opacities without another source of infection found. The patient will be admitted to the hospital for further evaluation and treatment and was accepted for admission by the hospitalist, Dr. Owusu. - Differential Diagnosis Preeclampsia, cardiomyopathy, sepsis, PE, Covid-19 Critical Care Time: Yes Critical care time in (mins) excluding proc time.: 35 Critical care attestation.: If time is entered above; I have spent that time in minutes in the direct care of this critically ill patient, excluding procedure time. Critical care time was spent on this patient in doing her initial evaluation, multiple re- evaluations, ordering and interpretation of labs and imaging, discussion with e FAMILY SERVICE AIDE service, medications for hypertension/diuresis/antibiotics, multiple discussions with the patient Critical Care Time: 35 minutes ED Disposition Clinical Impression: hypertension Acute CHF Qualifiers: Heart failure type: unspecified Qualified Code(s): I50.9 - Heart failure, unspecified Bilateral pneumonia Qualifiers: Pneumonia type: due to unspecified organism Lung location: unspecified part of lung Qualified Code(s): J18.9 - Pneumonia, unspecified organism Disposition: OP ADMIT IP TO THIS HOSP Is pt being admited?: Yes Condition: Serious Instructions: Bacterial Pneumonia (ED), Hypertension (ED) Referrals: PRIMARY CARE, [Primary Care Provider] - 3-5 Days Time of Disposition: 21:50
[2020-01-21 16:18] LABS: Hematocrit 29.6 % (30.3-42.9); Hemoglobin 9.6 gm/dl (10.1-14.3); Mean Corpuscular HGB Conc 32 % (30-34); Mean Corpuscular Volume 76 fl (79-97); Platelet Count 397 K/mm3 (140-440); Red Cell Distribution Width 17.5 % (13.2-15.2)
--- NOTE | 2020-01-21 16:37 | XRay Report ---
CHEST 1 VIEW 01/21/2020 3:29 PM INDICATION / CLINICAL INFORMATION: SOB. COMPARISON: None available. FINDINGS: SUPPORT DEVICES: None. HEART / MEDIASTINUM: The cardiac silhouette is prominent. LUNGS / PLEURA: There are probable small pleural effusions with bilateral airspace opacities. No pneu mothorax. ADDITIONAL FINDINGS: No significant additional findings. IMPRESSION: 1. Bilateral airspace opacities may represent edema or pneumonia. 2. Probable small pleural effusions. Signer Name: Rashid Rico MD Signed: 01/21/2020 4:33 PM Workstation Name: [id number]
[2020-01-21 16:40] LABS: Alanine Aminotransferase 10 units/L (7-56); Albumin 3.1 g/dL (3.9-5); BUN/Creatinine Ratio 14; Blood Urea Nitrogen 7 mg/dL (7-17); Calcium 8.5 mg/dL (8.4-10.2); Hemolysis Index 0
[2020-01-21 17:02] LABS: Band Neutrophils # (Manual) 0.1 K/mm3; Basophils % (Manual) 0 % (0.0-1.8); Hypochromasia 1+; Total Cells Counted 100
--- NOTE | 2020-01-21 18:27 | Cat Scan Report ---
CT angiography of the chest with 2-D reconstructions INDICATION: Shortness of breath and elevated d-dimer Thin section axial images were obtained as well as 2-D reformatted MIP images in all 3 planes FINDINGS: There is no hilar or mediastinal adenopathy. There is a minimal left pleural effusion and s mall to moderate right pleural effusion. No pericardial fluid is seen. There is slight to moderate ca rdiomegaly present. There is extensive bilateral lung consolidation which is predominantly alveolar i n pattern. No lung abscess or areas of cavitation.. There is no thoracic aortic aneurysm or dissectio n present. Routine axial images as well as 2-D reconstructions through the pulmonary arteries show no evidence of emboli. IMPRESSION: Extensive bilateral lung consolidation with associated effusions likely pneumonia. No PTE seen. Automated exposure control was utilized to diminish radiation dose. Signer Name: Gabino Toledo MD Signed: 01/21/2020 6:22 PM Workstation Name: [id number]
[2020-01-21] MEDS ORDERED: ALBUTEROL 2.5 MG/3 ML NEBU IH ONE (18:40)
[2020-01-21] MEDS ORDERED: hydrALAZINE 20 MG/1 ML INJ IV ONE (18:41)
[2020-01-21] MEDS ORDERED: FUROSEMIDE 20 MG/2 ML INJ IV ONE (18:57)
[2020-01-21] MEDS ORDERED: cefTRIAXone/NS 1 GM/50 ML 1 GM/50 ML BAG IV ONE (18:59)
[2020-01-21] MEDS ORDERED: AZITHROMYCIN 500 MG in SODIUM CHLORIDE 0.9% 250ML 250 ML IV ONE (19:00)
[2020-01-21] MEDS ORDERED: ACETAMINOPHEN 325 MG TAB PO ONE (20:45)
--- NOTE | 2020-01-21 21:09 | Event Note ---
Date: 01/21/[address] Sánchez symptoms warrant Covid-19 testing, she has no surgical/ complaints. Patient will be admitted by the Hospitalist at 9p. She will have Covid-[address] chest/Xray pneumonia, mild to moderate cardiomegaly, pleural effusion. Litharge Supervisor consulted to evaluate for Acute CHF. Would hold MgSO4 for now d/t risk for pulmonary edema. Will follow with you. .
[2020-01-21] MEDS ORDERED: NITROGLYCERIN 0.4 MG TAB SUBL SL PRN (22:58)
[2020-01-21] MEDS ORDERED: MAGNESIUM HYDROXIDE (MOM) ORAL LIQD UDC PO PRN (22:58)
[2020-01-21] MEDS ORDERED: ONDANSETRON 4 MG/2 ML INJ IV PRN (22:58)
[2020-01-21] MEDS ORDERED: VANCOMYCIN 2,000 MG in SODIUM CHLORIDE 0.9% 500 ML 500 ML IV ONE (23:45)
[2020-01-21] MEDS ORDERED: VANCOMYCIN PHARMACY TO DOSE IV SCH (23:45)
--- NOTE | 2020-01-22 01:21 | History and Physical Report ---
History of Present Illness Date of examination: 01/21/20 Date of admission: 01/21/20 21:51 Chief complaint: Shortness of Breath History of present illness: 24-year-old -Welsh female presenting to the emergency room today complaining of cough, fever and shortness of breath which has been ongoing for the past few days. Patient had section about 10 days to 2 weeks ago and thereafter indicates that she has been having progressive shortness of breath especially on minimal exertion. She has had some mild cough productive of some whitish sputum. She denies any sick contacts and no recent travel. Patient has had progressive swelling of her lower extremities even during . Work-up in the emergency room reveals a BNP of 560, CT scan of the chest shows pleural effusion versus pneumonia. In view of her recent section HEEL COMPRESSOR was consulted by the ER physician for further evaluation and recommendation. Patient has been placed on empiric IV antibiotics and also being managed for possible cardiomyopathy Past History Past Medical History: diabetes (Gestational) Past Surgical History: Social history: no significant social history Family history: hypertension Medications and Allergies Allergies Allergy/AdvReac Type Severity Reaction Status Date / Time No Known Allergies Allergy Verified 11/17/19 03:44 Home Medications Medication Instructions Recorded Confirmed Last Taken Type Vitamin 1 tab PO DAILY 01/10/20 01/21/20 01/01/20 History Tylenol 1 tab PO Q6H PRN 01/10/20 01/21/20 01/09/20 History Docusate Sodium [Colace] 100 mg PO BID PRN #60 capsule 01/11/20 01/21/20 Unknown Rx Ferrous Sulfate [Feosol 325 MG tab] 325 mg PO QDAY #60 tablet 01/11/20 01/21/20 Unknown Rx Ibuprofen [Motrin 800 MG tab] 800 mg PO Q8HR PRN #30 tablet 01/11/20 01/21/20 Unknown Rx oxyCODONE /ACETAMINOPHEN [Percocet 1 tab PO Q4HR #30 tab 01/11/20 01/21/20 Unknown Rx 5/325] Active Meds: Active Medications Acetaminophen (Tylenol) 650 mg PO Q4H PRN PRN Reason: Pain MILD(1-3)/Fever >100.5/GRIER Furosemide (Lasix) 40 mg IV BID@0600,1800 SILVINA Heparin Sodium (Porcine) (Heparin) 5,000 unit SUB-Q Q8HR SILVINA Cefepime HCl (Cefepime/Ns 2 Gm/100 Ml) 2 gm in 100 mls @ 200 mls/hr IV Q8HR SILVINA; Protocol Vancomycin HCl 2,000 mg/ (Sodium Chloride) 540 mls @ 250 mls/hr IV ONCE ONE Stop: 01/22/20 01:54 Magnesium Hydroxide (Milk Of Magnesia) 30 ml PO Q4H PRN PRN Reason: Constipation Morphine Sulfate (Morphine) 2 mg IV Q4H PRN PRN Reason: Pain, Moderate (4-6) Nitroglycerin (Nitrostat) 0.4 mg SL .Q5MIN PRN PRN Reason: Chest Pain Ondansetron HCl (Zofran) 4 mg IV Q8H PRN PRN Reason: Nausea And Vomiting Sodium Chloride (Sodium Chloride Flush Syringe 10 Ml) 10 ml IV BID SILVINA Sodium Chloride (Sodium Chloride Flush Syringe 10 Ml) 10 ml IV PRN PRN PRN Reason: LINE FLUSH Review of Systems Constitutional: no fever, no chills Cardiovascular: shortness of breath, no chest pain, no palpitations Respiratory: cough, shortness of breath, dyspnea on exertion Gastrointestinal: no abdominal pain, no nausea, no vomiting, no diarrhea Genitourinary Female: no dysuria, no hematuria Musculoskeletal: no neck pain, no low back pain Integumentary: no rash, no pruritis Neurological: no headaches, no change in mentation, no confusion Exam - Constitutional Vitals: Temp Pulse Resp BP Pulse Ox 100 F H 107 H 36 H 149/93 96 01/21/20 20:42 01/21/20 23:00 01/21/20 23:00 01/21/20 23:00 01/21/20 23:00 General appearance: Present: no acute distress, well-nourished, obese - EENT Eyes: Present: PERRL, EOM intact ENT: hearing intact, clear oral mucosa, dentition normal - Neck Neck: Present: supple, normal ROM - Respiratory Respiratory effort: normal Respiratory: bilateral: CTA - Cardiovascular Rhythm: regular Heart Sounds: Present: S1 & S2 - Extremities Extremities: no ischemia, pulses symmetrical, Full ROM Extremity abnormal: edema (2+) Peripheral Pulses: within normal limits - Abdominal General gastrointestinal: Present: soft, non-tender, distended - Integumentary Integumentary: Present: clear, warm, dry - Musculoskeletal Musculoskeletal: strength equal bilaterally - Psychiatric Psychiatric: appropriate mood/affect, intact judgment & insight, cooperative - Neurologic Neurologic: CNII-XII intact, moves all extremities Results - Labs CBC & Chem 7: 01/22/20 05:05 01/22/20 05:05 Labs: Abnormal lab results 01/21/20 01/21/20 01/21/20 Range/Units 16:05 16:05 16:05 Hgb 9.6 L (10.1-14.3) gm/dl Hct 29.6 L (30.3-42.9) % MCV 76 L (79-97) fl MCH 25 L (28-32) pg RDW 17.5 H (13.2-15.2) % Seg Neuts % (Manual) 77.0 H (40.0-70.0) % Lymphocytes % (Manual) 12.0 L (13.4-35.0) % Monocytes % (Manual) 9.0 H (0.0-7.3) % Lymphocytes # (Manual) 1.0 L (1.2-5.4) K/mm3 D-Dimer 1839.95 H (0-234) ng/mlDDU Carbon Dioxide 21 L (22-30) mmol/L Creatinine 0.5 L (0.7-1.2) mg/dL NT-Pro-B Natriuret Pep (0-450) pg/mL Total Protein 6.0 L (6.3-8.2) g/dL Albumin 3.1 L (3.9-5) g/dL 01/21/20 Range/Units 16:05 Hgb (10.1-14.3) gm/dl Hct (30.3-42.9) % MCV (79-97) fl MCH (28-32) pg RDW (13.2-15.2) % Seg Neuts % (Manual) (40.0-70.0) % Lymphocytes % (Manual) (13.4-35.0) % Monocytes % (Manual) (0.0-7.3) % Lymphocytes # (Manual) (1.2-5.4) K/mm3 D-Dimer (0-234) ng/mlDDU Carbon Dioxide (22-30) mmol/L Creatinine (0.7-1.2) mg/dL NT-Pro-B Natriuret Pep 516.9 H (0-450) pg/mL Total Protein (6.3-8.2) g/dL Albumin (3.9-5) g/dL Assessment and Plan - Patient Problems (1) Acute CHF Current Visit: Yes Status: Acute Qualifiers: Heart failure type: unspecified Qualified Code(s): I50.9 - Heart failure, unspecified Plan to address problem: Patient placed on diuretics. Will monitor input, output and also monitor daily weights. She will be scheduled for echocardiogram. (2) Bilateral pneumonia Current Visit: Yes Status: Acute Qualifiers: Pneumonia type: due to unspecified organism Lung location: unspecified part of lung Qualified Code(s): J18.9 - Pneumonia, unspecified organism Plan to address problem: Patient placed on empiric IV antibiotics. We will await blood culture results (3) DVT prophylaxis Current Visit: Yes Status: Acute Plan to address problem: Patient placed on subcutaneous heparin. (4) Full code status Current Visit: Yes Status: Acute
[2020-01-22 05:48] LABS: Hematocrit 30.5 % (30.3-42.9); Mean Corpuscular HGB Conc 33 % (30-34); Mean Corpuscular Volume 76 fl (79-97); Platelet Count 423 K/mm3 (140-440); Red Blood Count 4.05 M/mm3 (3.65-5.03); Red Cell Distribution Width 17.7 % (13.2-15.2)
[2020-01-22] MEDS: HEPARIN 5,000 UNIT/1 ML VIAL SUB-Q SCH ×3 (05:59→21:31)
[2020-01-22] MEDS: FUROSEMIDE 40 MG/4 ML INJ IV SCH ×2 (05:59→18:26)
[2020-01-22 06:00] LABS: INR 1.05 (0.87-1.13)
[2020-01-22 06:01] LABS: Partial Thromboplastin Time 37.3 Sec. (24.2-36.6)
[2020-01-22] MEDS: CEFEPIME/NS 2 GM/100 ML 2 GM/100 ML BAG IV SCH ×3 (06:07→21:31)
[2020-01-22 06:08] LABS: BUN/Creatinine Ratio 12; Blood Urea Nitrogen 7 mg/dL (7-17); Calcium 8.6 mg/dL (8.4-10.2); Hemolysis Index 0
[2020-01-22 07:01] LABS: Basophils % (Manual) 0 % (0.0-1.8); Eosinophils % (Manual) 0 % (0.0-4.3); Total Cells Counted 100
[2020-01-22 07:04] LABS: Anisocytosis Few; Hypochromasia Few; Macrocytosis Few
[2020-01-22 07:05] LABS: Platelet Estimate Consistent w Auto; Schistocytes Rare
[2020-01-22] MEDS: MORPHINE 2 MG/1 ML INJ IV PRN ×2 (09:26→20:22)
--- NOTE | 2020-01-22 10:07 | Progress Note ---
Assessment and Plan Assessment and plan: Patient is a 24-year-old -[place] female presenting to the emergency room today complaining of cough, fever and shortness of breath which has been ongoing for the past few days. Patient had section about 10 days to 2 weeks ago and thereafter indicates that she has been having progressive shortness of breath especially on minimal exertion. She has had some mild cough productive of some whitish sputum. She denies any sick contacts and no recent travel. Patient has had progressive swelling of her lower extremities even during . * Work-up in the emergency room reveals a BNP of 560, CT scan of the chest shows pleural effusion versus pneumonia. In view of her recent section SCRAP IRON CUTTER was consulted by the ER physician for further evaluation and recommendation. Patient has been placed on empiric IV antibiotics and also being managed for possible cardiomyopathy. ER also started the patient on work-up for COVID 19 Acute respiratory failure with progressive shortness of breath Acute congestive heart failure evaluate for cardiomyopathy Bilateral pneumonia 2 weeks Morbid obesity Anemia Plan Continue supportive care Continue antibiotic therapy while awaiting COVID 19 testing. SCRAP IRON CUTTER input noted Continue diuretics await Echocardiogram and cardiology consult Follow lab with diuresis CHF protocol Follow cultures DVT/GI prophy History Interval history: Patient seen and examined reports slight improvement in symptomology. Still with orthopnea which is improved on sitting up. Hospitalist Physical - Physical exam Narrative exam: VITAL SIGNS: Reviewed. GENERAL: The patient appears normally developed, Vital signs as documented. HEAD: No signs of head trauma. EYES: Pupils are equal. Extraocular motions intact. EARS: Hearing grossly intact. MOUTH: Oropharynx is normal. NECK: No adenopathy, no JVD. CHEST: Chest with diminished breath sounds bilaterally. No wheezes, rales, or rhonchi. CARDIAC: Regular rate and rhythm. S1 and S2, without murmurs, gallops, or rubs. VASCULAR:. +1 pitting edema. Peripheral pulses normal and equal in all extrem ities. ABDOMEN: Truncal obesity soft, non tender and non distended. No rebound or guarding, and no masses palpated. Bowel Sounds normal. MUSCULOSKELETAL: Good range of motion of all major joints. Extremities without clubbing, cyanosis. +1 pitting edema. NEUROLOGIC EXAM: Alert and oriented x 3 No focal sensory or strength deficits. Speech normal. Follows commands. PSYCHIATRIC: Mood normal. SKIN: detial exam as documented in skin assessment - Constitutional Vitals: Temp Pulse Resp BP Pulse Ox 100 F H 109 H 20 140/92 98 01/21/20 20:42 01/22/20 02:20 01/22/20 09:26 01/22/20 02:20 01/22/20 02:20 General appearance: Present: no acute distress, well-nourished, obese Results - Labs CBC & Chem 7: 01/22/20 05:05 01/22/20 05:05 Labs: Laboratory Last Values WBC 10.8 K/mm3 (4.5-11.0) 01/22/20 05:05 RBC 4.05 M/mm3 (3.65-5.03) 01/22/20 05:05 Hgb 10.0 gm/dl (10.1-14.3) L 01/22/20 05:05 Hct 30.5 % (30.3-42.9) 01/22/20 05:05 MCV 76 fl (79-97) L 01/22/20 05:05 MCH 25 pg (28-32) L 01/22/20 05:05 MCHC 33 % (30-34) 01/22/20 05:05 RDW 17.7 % (13.2-15.2) H 01/22/20 05:05 Plt Count 423 K/mm3 (140-440) 01/22/20 05:05 Add Manual Diff Complete 01/22/20 05:05 Total Counted 100 01/22/20 05:05 Seg Neuts % (Manual) 77.0 % (40.0-70.0) H 01/22/20 05:05 Band Neutrophils % 0 % 01/22/20 05:05 Lymphocytes % (Manual) 17.0 % (13.4-35.0) 01/22/20 05:05 Reactive Lymphs % (Man) 0 % 01/22/20 05:05 Monocytes % (Manual) 6.0 % (0.0-7.3) 01/22/20 05:05 Eosinophils % (Manual) 0 % (0.0-4.3) 01/22/20 05:05 Basophils % (Manual) 0 % (0.0-1.8) 01/22/20 05:05 Metamyelocytes % 0 % 01/22/20 05:05 Myelocytes % 0 % 01/22/20 05:05 Promyelocytes % 0 % 01/22/20 05:05 Blast Cells % 0 % 01/22/20 05:05 Nucleated RBC % Not Reportable 01/22/20 05:05 Seg Neutrophils # Man 8.3 K/mm3 (1.8-7.7) H 01/22/20 05:05 Band Neutrophils # 0.0 K/mm3 01/22/20 05:05 Lymphocytes # (Manual) 1.8 K/mm3 (1.2-5.4) 01/22/20 05:05 Abs React Lymphs (Man) 0.0 K/mm3 01/22/20 05:05 Monocytes # (Manual) 0.6 K/mm3 (0.0-0.8) 01/22/20 05:05 Eosinophils # (Manual) 0.0 K/mm3 (0.0-0.4) 01/22/20 05:05 Basophils # (Manual) 0.0 K/mm3 (0.0-0.1) 01/22/20 05:05 Metamyelocytes # 0.0 K/mm3 01/22/20 05:05 Myelocytes # 0.0 K/mm3 01/22/20 05:05 Promyelocytes # 0.0 K/mm3 01/22/20 05:05 Blast Cells # 0.0 K/mm3 01/22/20 05:05 WBC Morphology Not Reportable 01/22/20 05:05 Hypersegmented Neuts Not Reportable 01/22/20 05:05 Hyposegmented Neuts Not Reportable 01/22/20 05:05 Hypogranular Neuts Not Reportable 01/22/20 05:05 Smudge Cells Not Reportable 01/22/20 05:05 Toxic Granulation Not Reportable 01/22/20 05:05 Toxic Vacuolation Not Reportable 01/22/20 05:05 Dohle Bodies Not Reportable 01/22/20 05:05 Pelger-Huet Anomaly Not Reportable 01/22/20 05:05 [place] Rods Not Reportable 01/22/20 05:05 Platelet Estimate Consistent w auto 01/22/20 05:05 Clumped Platelets Not Reportable 01/22/20 05:05 Plt Clumps, EDTA Not Reportable 01/22/20 05:05 Large Platelets Not Reportable 01/22/20 05:05 Giant Platelets Not Reportable 01/22/20 05:05 Platelet Satelliting Not Reportable 01/22/20 05:05 Plt Morphology Comment Not Reportable 01/22/20 05:05 RBC Morphology Not Reportable 01/22/20 05:05 Dimorphic RBCs Not Reportable 01/22/20 05:05 Polychromasia Not Reportable 01/22/20 05:05 Hypochromasia Few 01/22/20 05:05 Poikilocytosis Not Reportable 01/22/20 05:05 Anisocytosis Few 01/22/20 05:05 Microcytosis Not Reportable 01/22/20 05:05 Macrocytosis Few 01/22/20 05:05 Spherocytes Not Reportable 01/22/20 05:05 Pappenheimer Bodies Not Reportable 01/22/20 05:05 Sickle Cells Not Reportable 01/22/20 05:05 Target Cells Not Reportable 01/22/20 05:05 Tear Drop Cells Not Reportable 01/22/20 05:05 Ovalocytes Not Reportable 01/22/20 05:05 Helmet Cells Not Reportable 01/22/20 05:05 [place] Bodies Not Reportable 01/22/20 05:05 [place] Rings Not Reportable 01/22/20 05:05 [place] Cells Not Reportable 01/22/20 05:05 Bite Cells Not Reportable 01/22/20 05:05 Crenated Cell Not Reportable 01/22/20 05:05 Elliptocytes Not Reportable 01/22/20 05:05 Acanthocytes (Spur) Not Reportable 01/22/20 05:05 Rouleaux Not Reportable 01/22/20 05:05 Hemoglobin C Crystals Not Reportable 01/22/20 05:05 Schistocytes Rare 01/22/20 05:05 Malaria parasites Not Reportable 01/22/20 05:05 Jovan Bodies Not Reportable 01/22/20 05:05 Hem Pathologist Commnt No 01/22/20 05:05 PT 13.8 Sec. (12.2-14.9) 01/22/20 05:05 INR 1.05 (0.87-1.13) 01/22/20 05:05 APTT 37.3 Sec. (24.2-36.6) H 01/22/20 05:05 D-Dimer 1839.95 ng/mlDDU (0-234) H 01/21/20 16:05 Sodium 143 mmol/L (137-145) 01/22/20 05:05 Potassium 3.6 mmol/L (3.6-5.0) D 01/22/20 05:05 Chloride 102.2 mmol/L (98-107) 01/22/20 05:05 Carbon Dioxide 24 mmol/L (22-30) 01/22/20 05:05 Anion Gap 20 mmol/L 01/22/20 05:05 BUN 7 mg/dL (7-17) 01/22/20 05:05 Creatinine 0.6 mg/dL (0.7-1.2) L 01/22/20 05:05 Estimated GFR > 60 ml/min 01/22/20 05:05 BUN/Creatinine Ratio 12 % 01/22/20 05:05 Glucose 94 mg/dL (65-100) 01/22/20 05:05 POC Glucose 105 (70-105) 01/22/20 05:54 Calcium 8.6 mg/dL (8.4-10.2) 01/22/20 05:05 Total Bilirubin 0.30 mg/dL (0.1-1.2) 01/21/20 16:05 AST 24 units/L (5-40) 01/21/20 16:05 ALT 10 units/L (7-56) 01/21/20 16:05 Alkaline Phosphatase 114 units/L (35-129) 01/21/20 16:05 NT-Pro-B Natriuret Pep 516.9 pg/mL (0-450) H 01/21/20 16:05 Total Protein 6.0 g/dL (6.3-8.2) L 01/21/20 16:05 Albumin 3.1 g/dL (3.9-5) L 01/21/20 16:05 Albumin/Globulin Ratio 1.1 % 01/21/20 16:05 Influenza A (Rapid) Negative (Negative) 01/21/20 Unknown Influenza B (Rapid) Negative (Negative) 01/21/20 Unknown Microbiology: Microbiology 01/21/20 19:09 Peripheral/Venous Blood Culture - Preliminary Culture in Progress 01/21/20 19:16 Peripheral/Venous Blood Culture - Preliminary Culture in Progress Pulido/IV: Voiding Method Toilet IV Catheter Type [Left INT / Saline Lock Antecubital] Active Medications - Current Medications Current Medications: Generic Name Dose Route Start Last Admin Trade Name Freq PRN Reason Stop Dose Admin Acetaminophen 650 mg 01/21/20 22:58 Tylenol PO Q4H PRN Pain MILD(1-3)/Fever >100.5/GRIER Furosemide 40 mg 01/22/20 06:00 01/22/20 05:59 Lasix IV 40 mg BID@0600,1800 SILVINA Administration Heparin Sodium (Porcine) 5,000 unit 01/22/20 06:00 01/22/20 05:59 Heparin SUB-Q 5,000 unit Q8HR SILVINA Administration Cefepime HCl 2 gm in 100 mls @ 200 mls/hr 01/22/20 06:00 01/22/20 06:07 Cefepime/Ns 2 Gm/100 Ml IV 200 mls/hr Q8HR SILVINA Administration Protocol Vancomycin HCl 1,750 mg/ 535 mls @ 333.333 mls/hr 01/22/20 13:00 Sodium Chloride IV Q12H SILVINA Magnesium Hydroxide 30 ml 01/21/20 22:58 Milk Of Magnesia PO Q4H PRN Constipation Morphine Sulfate 2 mg 01/21/20 22:58 01/22/20 09:26 Morphine IV 2 mg Q4H PRN Administration Pain, Moderate (4-6) Nitroglycerin 0.4 mg 01/21/20 22:58 Nitrostat SL .Q5MIN PRN Chest Pain Ondansetron HCl 4 mg 01/21/20 22:58 Zofran IV Q8H PRN Nausea And Vomiting Sodium Chloride 10 ml 01/22/20 10:00 01/22/20 09:28 Sodium Chloride Flush Syringe 10 Ml IV 10 ml BID SILVINA Administration Sodium Chloride 10 ml 01/21/20 22:58 Sodium Chloride Flush Syringe 10 Ml IV PRN PRN LINE FLUSH
--- NOTE | 2020-01-22 10:11 | Event Note ---
Date: 01/22/20 We are consulted to see this patient for "CHF". Chart reviewed. Patient is 1 week post , presents with fever 100F, SOB and bilateral pulmonary infiltrates, reported on CXR and CTA chest to be likely bilateral pneumonia. Patient is being actively tested for COVID-19 infection. An Echocardiogram has been ordered for LV function and valvular function. We will review and report on Echocardiogram, but otherwise recommend that you continue management for pulmonary infection/COVID-19 evaluation. We will be happy to provide further consultation if there is future clinical indication of heart failure.
[2020-01-22] MEDS: VANCOMYCIN 1,750 MG in SODIUM CHLORIDE 0.9% 500 ML 500 ML IV SCH (14:03)
[2020-01-23] MEDS: VANCOMYCIN 1,750 MG in SODIUM CHLORIDE 0.9% 500 ML 500 ML IV SCH ×2 (00:03→12:52)
[2020-01-23] MEDS: ACETAMINOPHEN 325 MG TAB PO PRN ×2 (01:01→19:12)
[2020-01-23] MEDS: CEFEPIME/NS 2 GM/100 ML 2 GM/100 ML BAG IV SCH ×3 (05:12→21:58)
[2020-01-23] MEDS: HEPARIN 5,000 UNIT/1 ML VIAL SUB-Q SCH ×3 (05:12→21:57)
[2020-01-23] MEDS: FUROSEMIDE 40 MG/4 ML INJ IV SCH ×2 (05:13→17:21)
[2020-01-23] MEDS: MORPHINE 2 MG/1 ML INJ IV PRN ×2 (05:31→22:13)
--- NOTE | 2020-01-23 13:25 | Consultation ---
History of Present Illness Consult date: 01/23/20 Consult reason: congestive heart failure History of present illness: 24y F who is 12 days post for rupture of membranes and breech presentation. Mother and baby both did well, and were discharged 01/13/2019. Re-admitted one week later with SOB and cough. There was also low grade fever. Chest Xray showed bilateral lung infiltrates, CHF vs bilateral pneumonia. Patient is also being screened for possible COVID-19 infection. BP on presentation was elevated, 150s to 170s systolic. Patient denies history of hypertension. Report that she was not treated for hypertension during the . ECG is NSR, with poor R wave progress, pattern of old ASMI. No acute ischemic changes. ECHO shows a moderate severity dilated cardiomyopathy, EF 35-40%. Past History Past Medical History: diabetes (Gestational), other (obesity) Past Surgical History: Social history: no significant social history Family history: hypertension Medications and Allergies Allergies Allergy/AdvReac Type Severity Reaction Status Date / Time No Known Allergies Allergy Verified 11/17/19 03:44 Home Medications Medication Instructions Recorded Confirmed Last Taken Type Vitamin 1 tab PO DAILY 01/10/20 01/21/20 01/01/20 History Tylenol 1 tab PO Q6H PRN 01/10/20 01/21/20 01/09/20 History Docusate Sodium [Colace] 100 mg PO BID PRN #60 capsule 01/11/20 01/21/20 Unknown Rx Ferrous Sulfate [Feosol 325 MG tab] 325 mg PO QDAY #60 tablet 01/11/20 01/21/20 Unknown Rx Ibuprofen [Motrin 800 MG tab] 800 mg PO Q8HR PRN #30 tablet 01/11/20 01/21/20 Unknown Rx oxyCODONE /ACETAMINOPHEN [Percocet 1 tab PO Q4HR #30 tab 01/11/20 01/21/20 Unknown Rx 5/325] Active Meds: Active Medications Acetaminophen (Tylenol) 650 mg PO Q4H PRN PRN Reason: Pain MILD(1-3)/Fever >100.5/GRIER Last Admin: 01/23/20 01:01 Dose: 650 mg Documented by: Furosemide (Lasix) 40 mg IV BID@0600,1800 SILVINA Last Admin: 01/23/20 05:13 Dose: 40 mg Documented by: Heparin Sodium (Porcine) (Heparin) 5,000 unit SUB-Q Q8HR [facility] Last Admin: 01/23/20 05:12 Dose: 5,000 unit Documented by: Cefepime HCl (Cefepime/Ns 2 Gm/100 Ml) 2 gm in 100 mls @ 200 mls/hr IV Q8HR [facility]; Protocol Last Admin: 01/23/20 13:00 Dose: 200 mls/hr Documented by: Vancomycin HCl 1,750 mg/ (Sodium Chloride) 535 mls @ 333.333 mls/hr IV Q12H [facility] Last Admin: 01/23/20 12:52 Dose: 333.333 mls/hr Documented by: Magnesium Hydroxide (Milk Of Magnesia) 30 ml PO Q4H PRN PRN Reason: Constipation Morphine Sulfate (Morphine) 2 mg IV Q4H PRN PRN Reason: Pain, Moderate (4-6) Last Admin: 01/23/20 05:31 Dose: 2 mg Documented by: Nitroglycerin (Nitrostat) 0.4 mg SL .Q5MIN PRN PRN Reason: Chest Pain Ondansetron HCl (Zofran) 4 mg IV Q8H PRN PRN Reason: Nausea And Vomiting Sodium Chloride (Sodium Chloride Flush Syringe 10 Ml) 10 ml IV BID [facility] Last Admin: 01/23/20 09:47 Dose: 10 ml Documented by: Sodium Chloride (Sodium Chloride Flush Syringe 10 Ml) 10 ml IV PRN PRN PRN Reason: LINE FLUSH Review of Systems Cardiovascular: orthopnea, edema, shortness of breath, no chest pain, no palpitations, no rapid/irregular heart beat, no syncope, no lightheadedness Physical Examination Vital Signs Pulse Resp Pulse Ox 107 H 22 96 01/21/20 15:04 01/21/20 15:04 01/21/20 15:04 General appearance: no acute distress HEENT: Positive: PERRL Cardiac: Positive: Reg Rate and Rhythm Lungs: Positive: Decreased Breath Sounds Neuro: Positive: Grossly Intact Abdomen: Positive: Soft Female genitourinary: deferred Skin: Positive: Clear Extremities: Present: edema (trace) Results 01/22/20 05:05 01/22/20 05:05 EKG interpretations - Telemetry EKG Rhythm: Sinus Rhythm Assessment and Plan - Patient Problems (1) Systolic heart failure Current Visit: Yes Status: Acute Plan to address problem: Peripartum cardiomyopathy and systolic HF. Diuretics, afterload therapy and other GDMT. Patient is advised to forgo breast feeding due to anticipated HF medical therapy. (2) hypertension Current Visit: Yes Status: Acute Plan to address problem: Optimal BP management.
[2020-01-23] MEDS: NIFEdipine XL 30 MG TAB PO SCH (14:05)
[2020-01-23] MEDS: SPIRONOLACTONE 25 MG TAB PO SCH (14:06)
[2020-01-23] MEDS: LOSARTAN 50 MG TAB PO SCH (14:06)
[2020-01-23] MEDS: carvediloL 6.25 MG TAB PO SCH ×2 (14:09→21:56)
--- NOTE | 2020-01-23 19:49 | Progress Note ---
Assessment and Plan Assessment and plan: Patient is a 24-year-old -[place]og[place] female presenting to the emergency room today complaining of cough, fever and shortness of breath which has been ongoing for the past few days. Patient had section about 10 days to 2 weeks ago and thereafter indicates that she has been having progressive shortness of breath especially on minimal exertion. She has had some mild cough productive of some whitish sputum. She denies any sick contacts and no recent travel. Patient has had progressive swelling of her lower extremities even during . Per documentation she was labor and had a with rupture of membranes and breech presentation. Baby is still in the NICU. * Work-up in the emergency room reveals a BNP of 560, CT scan of the chest shows pleural effusion versus pneumonia. In view of her recent section READING INTERVENTIONIST was consulted by the ER physician for further evaluation and recommendation. Patient has been placed on empiric IV antibiotics and also being managed for possible cardiomyopathy. ER also started the patient on work-up for COVID 19 * Echocardiogram report shows an ejection fraction of 35 to 40% on admission patient had a systolic blood pressure in the 150s to 170s. Was never treated for hypertension during . Cardiology had extensive discussion with the patient she will be managed for heart failure to avoid breast-feeding during treatment. Acute respiratory failure with progressive shortness of breath Acute congestive systolic heart failure likely cardiomyopathy hypertension Bilateral pneumonia 2 weeks Morbid obesity Anemia Plan Continue supportive care Continue antibiotic therapy while awaiting COVID 19 testing. Started on diuretics, afterload therapy and other goal directed medical treatment READING INTERVENTIONIST input noted Continue diuretics Follow lab with diuresis CHF protocol Follow cultures DVT/GI prophy Anticipate discharge in AM History Interval history: Patient seen and examined reports continues to show some improvement sitting up reports orthopnea is improved but still has some mild intermittent chest pain now only centrally located and palpable. Hospitalist Physical - Physical exam Narrative exam: VITAL SIGNS: Reviewed. GENERAL: The patient appears normally developed, Vital signs as documented. HEAD: No signs of head trauma. EYES: Pupils are equal. Extraocular motions intact. EARS: Hearing grossly intact. MOUTH: Oropharynx is normal. NECK: No adenopathy, no JVD. CHEST: Chest with diminished breath sounds bilaterally. No wheezes, rales, or rhonchi. CARDIAC: Regular rate and rhythm. S1 and S2, without murmurs, gallops, or rubs. VASCULAR:. +1 pitting edema persist but slightly improved. Peripheral pulses normal and equal in all extremities. ABDOMEN: Truncal obesity soft, non tender and non distended. No rebound or guarding, and no masses palpated. Bowel Sounds normal. MUSCULOSKELETAL: Good range of motion of all major joints. Extremities without clubbing, cyanosis. +1 pitting edema. NEUROLOGIC EXAM: Alert and oriented x 3 No focal sensory or strength deficits. Speech normal. Follows commands. PSYCHIATRIC: Mood normal. SKIN: detial exam as documented in skin assessment - Constitutional Vitals: Temp Pulse Resp BP Pulse Ox 98.6 F 105 H 24 137/84 91 01/23/20 16:52 01/23/20 16:52 01/23/20 16:52 01/23/20 16:52 01/23/20 16:52 General appearance: Present: no acute distress Results - Labs CBC & Chem 7: 01/22/20 05:05 01/22/20 05:05 Labs: Laboratory Last Values WBC 10.8 K/mm3 (4.5-11.0) 01/22/20 05:05 RBC 4.05 M/mm3 (3.65-5.03) 01/22/20 05:05 Hgb 10.0 gm/dl (10.1-14.3) L 01/22/20 05:05 Hct 30.5 % (30.3-42.9) 01/22/20 05:05 MCV 76 fl (79-97) L 01/22/20 05:05 MCH 25 pg (28-32) L 01/22/20 05:05 MCHC 33 % (30-34) 01/22/20 05:05 RDW 17.7 % (13.2-15.2) H 01/22/20 05:05 Plt Count 423 K/mm3 (140-440) 01/22/20 05:05 Add Manual Diff Complete 01/22/20 05:05 Total Counted 100 01/22/20 05:05 Seg Neuts % (Manual) 77.0 % (40.0-70.0) H 01/22/20 05:05 Band Neutrophils % 0 % 01/22/20 05:05 Lymphocytes % (Manual) 17.0 % (13.4-35.0) 01/22/20 05:05 Reactive Lymphs % (Man) 0 % 01/22/20 05:05 Monocytes % (Manual) 6.0 % (0.0-7.3) 01/22/20 05:05 Eosinophils % (Manual) 0 % (0.0-4.3) 01/22/20 05:05 Basophils % (Manual) 0 % (0.0-1.8) 01/22/20 05:05 Metamyelocytes % 0 % 01/22/20 05:05 Myelocytes % 0 % 01/22/20 05:05 Promyelocytes % 0 % 01/22/20 05:05 Blast Cells % 0 % 01/22/20 05:05 Nucleated RBC % Not Reportable 01/22/20 05:05 Seg Neutrophils # Man 8.3 K/mm3 (1.8-7.7) H 01/22/20 05:05 Band Neutrophils # 0.0 K/mm3 01/22/20 05:05 Lymphocytes # (Manual) 1.8 K/mm3 (1.2-5.4) 01/22/20 05:05 Abs React Lymphs (Man) 0.0 K/mm3 01/22/20 05:05 Monocytes # (Manual) 0.6 K/mm3 (0.0-0.8) 01/22/20 05:05 Eosinophils # (Manual) 0.0 K/mm3 (0.0-0.4) 01/22/20 05:05 Basophils # (Manual) 0.0 K/mm3 (0.0-0.1) 01/22/20 05:05 Metamyelocytes # 0.0 K/mm3 01/22/20 05:05 Myelocytes # 0.0 K/mm3 01/22/20 05:05 Promyelocytes # 0.0 K/mm3 01/22/20 05:05 Blast Cells # 0.0 K/mm3 01/22/20 05:05 WBC Morphology Not Reportable 01/22/20 05:05 Hypersegmented Neuts Not Reportable 01/22/20 05:05 Hyposegmented Neuts Not Reportable 01/22/20 05:05 Hypogranular Neuts Not Reportable 01/22/20 05:05 Smudge Cells Not Reportable 01/22/20 05:05 Toxic Granulation Not Reportable 01/22/20 05:05 Toxic Vacuolation Not Reportable 01/22/20 05:05 Dohle Bodies Not Reportable 01/22/20 05:05 Pelger-Huet Anomaly Not Reportable 01/22/20 05:05 Castro Rods Not Reportable 01/22/20 05:05 Platelet Estimate Consistent w auto 01/22/20 05:05 Clumped Platelets Not Reportable 01/22/20 05:05 Plt Clumps, EDTA Not Reportable 01/22/20 05:05 Large Platelets Not Reportable 01/22/20 05:05 Giant Platelets Not Reportable 01/22/20 05:05 Platelet Satelliting Not Reportable 01/22/20 05:05 Plt Morphology Comment Not Reportable 01/22/20 05:05 RBC Morphology Not Reportable 01/22/20 05:05 Dimorphic RBCs Not Reportable 01/22/20 05:05 Polychromasia Not Reportable 01/22/20 05:05 Hypochromasia Few 01/22/20 05:05 Poikilocytosis Not Reportable 01/22/20 05:05 Anisocytosis Few 01/22/20 05:05 Microcytosis Not Reportable 01/22/20 05:05 Macrocytosis Few 01/22/20 05:05 Spherocytes Not Reportable 01/22/20 05:05 Pappenheimer Bodies Not Reportable 01/22/20 05:05 Sickle Cells Not Reportable 01/22/20 05:05 Target Cells Not Reportable 01/22/20 05:05 Tear Drop Cells Not Reportable 01/22/20 05:05 Ovalocytes Not Reportable 01/22/20 05:05 Helmet Cells Not Reportable 01/22/20 05:05 [place] Bodies Not Reportable 01/22/20 05:05 [place] Rings Not Reportable 01/22/20 05:05 [place] Cells Not Reportable 01/22/20 05:05 Bite Cells Not Reportable 01/22/20 05:05 Crenated Cell Not Reportable 01/22/20 05:05 Elliptocytes Not Reportable 01/22/20 05:05 Acanthocytes (Spur) Not Reportable 01/22/20 05:05 Rouleaux Not Reportable 01/22/20 05:05 Hemoglobin C Crystals Not Reportable 01/22/20 05:05 Schistocytes Rare 01/22/20 05:05 Malaria parasites Not Reportable 01/22/20 05:05 Jovan Bodies Not Reportable 01/22/20 05:05 Hem Pathologist Commnt No 01/22/20 05:05 PT 13.8 Sec. (12.2-14.9) 01/22/20 05:05 INR 1.05 (0.87-1.13) 01/22/20 05:05 APTT 37.3 Sec. (24.2-36.6) H 01/22/20 05:05 D-Dimer 1839.95 ng/mlDDU (0-234) H 01/21/20 16:05 Sodium 143 mmol/L (137-145) 01/22/20 05:05 Potassium 3.6 mmol/L (3.6-5.0) D 01/22/20 05:05 Chloride 102.2 mmol/L (98-107) 01/22/20 05:05 Carbon Dioxide 24 mmol/L (22-30) 01/22/20 05:05 Anion Gap 20 mmol/L 01/22/20 05:05 BUN 7 mg/dL (7-17) 01/22/20 05:05 Creatinine 0.6 mg/dL (0.7-1.2) L 01/22/20 05:05 Estimated GFR > 60 ml/min 01/22/20 05:05 BUN/Creatinine Ratio 12 % 01/22/20 05:05 Glucose 94 mg/dL (65-100) 01/22/20 05:05 POC Glucose 105 (70-105) 01/22/20 05:54 Calcium 8.6 mg/dL (8.4-10.2) 01/22/20 05:05 Total Bilirubin 0.30 mg/dL (0.1-1.2) 01/21/20 16:05 AST 24 units/L (5-40) 01/21/20 16:05 ALT 10 units/L (7-56) 01/21/20 16:05 Alkaline Phosphatase 114 units/L (35-129) 01/21/20 16:05 NT-Pro-B Natriuret Pep 516.9 pg/mL (0-450) H 01/21/20 16:05 Total Protein 6.0 g/dL (6.3-8.2) L 01/21/20 16:05 Albumin 3.1 g/dL (3.9-5) L 01/21/20 16:05 Albumin/Globulin Ratio 1.1 % 01/21/20 16:05 Influenza A (Rapid) Negative (Negative) 01/21/20 Unknown Influenza A (RT-PCR) Negative (Negative) 01/23/20 Unknown Influenza B (Rapid) Negative (Negative) 01/21/20 Unknown Influenza B (RT-PCR) Negative (Negative) 01/23/20 Unknown Microbiology: Microbiology 01/22/20 04:51 Nares - Right MRSA Culture - Preliminary 01/21/20 19:09 Peripheral/Venous Blood Culture - Preliminary NO GROWTH AFTER 24 HOURS 01/21/20 19:16 Peripheral/Venous Blood Culture - Preliminary NO GROWTH AFTER 24 HOURS - Diagnostic Impressions Diagnostic Impressions: Echocardiogram 01/21/20 23:11 Transthoracic Echocardiogram Indication: Dyspnea BP: 140/92 HR: 108 Conclusions *The left ventricular chamber size is mildly dilated. *Mild concentric left ventricular hypertrophy is observed. *Global left ventricular systolic function is mild to moderately decreased. *The estimated ejection fraction is 35-40%. *The left atrium is mildly dilated. *There is trace of mitral regurgitation. *The right heart chambers are both mildly dilated. *There is trace tricuspid regurgitation. *There is a minimial pericardial effusion. Findings Left Ventricle: The left ventricular chamber size is mildly dilated. Mild concentric left ventricular hypertrophy is observed. Global left ventricular systolic function is mild to moderately decreased. The estimated ejection fraction is 35-40%. Left Atrium: The left atrium is mildly dilated. Right Ventricle: The right ventricle is mildly dilated. The right ventricular global systolic function is mildly reduced. Right Atrium: The right atrium is mildly dilated. Aortic Valve: The aortic valve is trileaflet. The aortic valve leaflets are mildly thickened. There is no evidence of aortic regurgitation. There is no evidence of aortic stenosis. Mitral Valve: The mitral valve leaflets are mildly thickened. There is trace of mitral regurgitation. There is no evidence of mitral stenosis. Tricuspid Valve: The tricuspid valve leaflets are normal. There is trace tricuspid regurgitation. No pulmonary hypertension is noted. Pericardium: There is a minimial pericardial effusion. Aorta: There is no dilatation of the ascending aorta. There is no dilatation of the aortic root. Venous: The inferior vena cava appears normal in size. Measurements Chambers 2D Name Value Normal Range IVSd (2D) 1.23 cm (0.6 - 1.1) LVPWd (2D) 1.16 cm (0.6 - 1.1) LVIDd (2D) 5.66 cm (3.7 - 5.6) LVIDs (2D) 4.2 cm (2 - 3.8) LV FS (2D) 25.87 % - EF Teichholz (2D) 50.22 % - Ao root diameter (2D) 2.89 cm (2 - 3.7) Volumes/Mass Name Value Normal Range LA ESV SP 4CH (A/L) 43.53 ml - LA ESV SP 2CH (A/L) 30.98 ml - LA ESV BP (A/L) 43.62 ml - LA ESV BP (A/L) index 19.3 ml/m2 - LA ESV SP 4CH (MOD) 38.66 ml - LA ESV SP 2CH (MOD) 29.91 ml - LA ESV BP (MOD) 40.24 ml - LA ESV BP (MOD) index 17.81 ml/m2 - Diastolic/Systolic Function Name Value Normal Range MV E-wave Vmax 1.55 m/sec - MV deceleration time 135.07 msec - Aortic Valve Name Value Normal Range AV Vmax 1.81 m/sec - AV VTI 31.9 cm - AV peak gradient 13.14 mmHg - AV mean gradient 7.24 mmHg - LVOT diameter 2.09 cm - LVOT Vmax 1.5 m/sec - LVOT VTI 25.88 cm - LVOT peak gradient 9.05 mmHg - LVOT mean gradient 5.23 mmHg - SV LVOT 88.52 ml - AGUSTO (continuity Vmax) 2.84 cm2 - AGUSTO (continuity VTI) 2.78 cm2 - Tricuspid Valve Name Value Normal Range IVC diameter 2.76 cm (1.2 - 2.3) Pulmonic Valve/Qp:Qs Name Value Normal Range PV Vmax 0.91 m/sec - PV peak gradient 3.32 mmHg - PV acceleration time 98.95 msec - Pulido/IV: Voiding Method Toilet IV Catheter Type [Left INT / Saline Lock Antecubital] Active Medications - Current Medications Current Medications: Generic Name Dose Route Start Last Admin Trade Name Freq PRN Reason Stop Dose Admin Acetaminophen 650 mg 01/21/20 22:58 01/23/20 19:12 Tylenol PO 650 mg Q4H PRN Administration Pain MILD(1-3)/Fever >100.5/GRIER Carvedilol 6.25 mg 01/23/20 14:00 01/23/20 14:09 Coreg PO 6.25 mg BID SILVINA Administration Furosemide 40 mg 01/22/20 06:00 01/23/20 17:21 Lasix IV 40 mg BID@0600,1800 SILVINA Administration Heparin Sodium (Porcine) 5,000 unit 01/22/20 06:00 01/23/20 13:47 Heparin SUB-Q 5,000 unit Q8HR SILVINA Administration Cefepime HCl 2 gm in 100 mls @ 200 mls/hr 01/22/20 06:00 01/23/20 13:00 Cefepime/Ns 2 Gm/100 Ml IV 200 mls/hr Q8HR SILVINA Administration Protocol Vancomycin HCl 1,750 mg/ 535 mls @ 333.333 mls/hr 01/22/20 13:00 01/23/20 12:52 Sodium Chloride IV 333.333 mls/hr Q12H SILVINA Administration Losartan Potassium 50 mg 01/23/20 14:00 01/23/20 14:06 Cozaar PO 50 mg QDAY SILVINA Administration Magnesium Hydroxide 30 ml 01/21/20 22:58 Milk Of Magnesia PO Q4H PRN Constipation Morphine Sulfate 2 mg 01/21/20 22:58 01/23/20 05:31 Morphine IV 2 mg Q4H PRN Administration Pain, Moderate (4-6) Nifedipine 30 mg 01/23/20 14:00 01/23/20 14:05 Procardia Xl PO 30 mg QDAY SILVINA Administration Nitroglycerin 0.4 mg 01/21/20 22:58 Nitrostat SL .Q5MIN PRN Chest Pain Ondansetron HCl 4 mg 01/21/20 22:58 Zofran IV Q8H PRN Nausea And Vomiting Sodium Chloride 10 ml 01/22/20 10:00 01/23/20 09:47 Sodium Chloride Flush Syringe 10 Ml IV 10 ml BID SILVINA Administration Sodium Chloride 10 ml 01/21/20 22:58 Sodium Chloride Flush Syringe 10 Ml IV PRN PRN LINE FLUSH Spironolactone 25 mg 01/23/20 14:00 01/23/20 14:06 Aldactone PO 25 mg QDAY SILVINA Administration
[2020-01-24] MEDS: ACETAMINOPHEN 325 MG TAB PO PRN ×2 (01:00→06:00)
[2020-01-24] MEDS: VANCOMYCIN 1,750 MG in SODIUM CHLORIDE 0.9% 500 ML 500 ML IV SCH ×2 (01:44→16:02)
[2020-01-24] MEDS: MORPHINE 2 MG/1 ML INJ IV PRN (03:10)
[2020-01-24] MEDS: FUROSEMIDE 40 MG/4 ML INJ IV SCH (05:43)
[2020-01-24] MEDS: CEFEPIME/NS 2 GM/100 ML 2 GM/100 ML BAG IV SCH ×2 (05:44→13:12)
[2020-01-24] MEDS: HEPARIN 5,000 UNIT/1 ML VIAL SUB-Q SCH ×2 (05:56→16:04)
[2020-01-24] MEDS: SPIRONOLACTONE 25 MG TAB PO SCH (09:04)
[2020-01-24] MEDS: LOSARTAN 50 MG TAB PO SCH (09:04)
[2020-01-24] MEDS: carvediloL 6.25 MG TAB PO SCH (09:04)
[2020-01-24] MEDS: NIFEdipine XL 30 MG TAB PO SCH (09:04)
[2020-01-24 09:06] LABS: BUN/Creatinine Ratio 10; Blood Urea Nitrogen 6 mg/dL (7-17); Calcium 9.2 mg/dL (8.4-10.2); Hemolysis Index 0
--- NOTE | 2020-01-24 11:17 | Progress Note ---
Assessment and Plan Shortness of breath Extensive pulmonary infiltrates on CT Cardiomyopathy, probably viral vs hypertensive in etiology LVEF 35-40% by echo this admission On carvedilol, lasix, losartan and aldactone Essential primary hypertension On nifedipine, losartan, aldactone, lasix and carvedilol Headache Hypokalemia Recommendations: Continue current management Replete potassium Daily monitoring of renal function Follow-up covid 19 testing Subjective Date of service: 01/24/20 Principal diagnosis: Shortness of breath Interval history: Patient was not examined today. Attempts at reaching the patient by phone - no answer. Discussed case with her nurse over the phone. Objective Vital Signs Temp Pulse Resp Resp BP Pulse Ox 01/24/20 09:04 140/90 01/24/20 07:09 98.3 F 101 H 20 146/94 93 01/24/20 06:00 18 01/24/20 03:10 20 01/24/20 01:00 20 01/23/20 23:56 98.7 F 98 H 24 116/67 85 01/23/20 22:13 20 20 01/23/20 21:56 90 135/80 01/23/20 16:52 98.6 F 105 H 24 137/84 91 01/23/20 14:09 141/90 01/23/20 14:06 141/90 01/23/20 12:20 98.4 F 105 H 22 141/90 94 - Physical Examination HEENT: Positive: PERRL - Labs and Meds Comprehensive Metabolic Panel 01/24/20 Range/Units 07:19 Sodium 142 (137-145) mmol/L Potassium 3.1 L (3.6-5.0) mmol/L Chloride 96.8 L (98-107) mmol/L Carbon Dioxide 25 (22-30) mmol/L BUN 6 L (7-17) mg/dL Creatinine 0.6 L (0.7-1.2) mg/dL Glucose 97 (65-100) mg/dL Calcium 9.2 (8.4-10.2) mg/dL
[2020-01-24] MEDS ORDERED: POTASSIUM CHLORIDE ER 20 MEQ TAB PO NR (11:28)
--- NOTE | 2020-01-24 14:05 | Discharge Summary ---
Providers - Providers Date of Admission: 01/21/20 21:51 Attending physician: SAMRA ONTIVEROS MD 01/21/20 19:32 Consult to Physician [CONS] Routine Comment: Consulting Provider: MARY KATE TALAMANTES Physician Instructions: Reason For Exam: Post- Hypertension, preeclampsia 01/21/20 19:33 Consult to Cardiology [CONS] Routine Consulting Provider: LOLY MONTOYA Reason For Exam: Acute CHF Primary care physician: RN INFORMATICS Hospitalization Reason for admission: Heart failure Condition: Stable Hospital course: Patient is a 24-year-old -[place] female presenting to the emergency room today complaining of cough, fever and shortness of breath which has been ongoing for the past few days. Patient had section about 10 days to 2 weeks ago and thereafter indicates that she has been having progressive shortness of breath especially on minimal exertion. She has had some mild cough productive of some whitish sputum. She denies any sick contacts and no recent travel. Patient has had progressive swelling of her lower extremities even during . Per documentation she was labor and had a with rupture of membranes and breech presentation. Baby is still in the NICU. Work-up in the emergency room reveals a BNP of 560, CT scan of the chest shows pleural effusion versus pneumonia. In view of her recent section PLANT TOUR GUIDE was consulted by the ER physician for further evaluation and recommendation. Patient has been placed on empiric IV antibiotics and also being managed for possible cardiomyopathy. ER also started the patient on work-up for COVID 19 Echocardiogram report shows an ejection fraction of 35 to 40% on admission patient had a systolic blood pressure in the 150s to 170s. Was never treated for hypertension during . Cardiology had extensive discussion with the patient she will be managed for heart failure to avoid breast-feeding during treatment. With goal directed medical therapy patient saturation improved now 92% on room air she has been off oxygen for 24 hours. I discussed with her about her discharge plan she will complete antibiotic therapy and also continue self isolation and quarantine using a mask when she has to be in contact with people especially her baby she has been advised to forego breast-feeding during the. Of heart failure therapy. Follow-up with cardiology 14 days or sooner if her COVID 19 test is negative. Acute respiratory failure with progressive shortness of breath Acute congestive systolic heart failure likely cardiomyopathy hypertension Bilateral pneumonia 2 weeks Morbid obesity Anemia Plan Continue supportive care Continue antibiotic therapy while awaiting COVID 19 testing. Started on diuretics, afterload therapy and other goal directed medical treatment PLANT TOUR GUIDE input noted Continue diuretics Follow lab with diuresis CHF protocol Follow cultures DVT/GI prophy Anticipate discharge in AM Disposition: DC-01 TO HOME OR SELFCARE Core Measure Documentation - Core Measures Any of the following diagnoses?: heart failure Exam - Constitutional Vitals: Temp Pulse Resp BP Pulse Ox 98.3 F 101 H 20 140/90 93 01/24/20 07:09 01/24/20 07:09 01/24/20 07:09 01/24/20 09:04 01/24/20 07:09 Plan Activity: advance as tolerated Diet: low fat, low salt Special Instructions: restrict fluid intake to (1200/day), record daily weights, record daily BP diary Additional Instructions: Must self quaratine at home unless the test result for Covid 19 (Coronavirus) comes back negative then you can stop the self quaratine. If you must leave home, you are required to wear a Mask at all times. When at home to prevent Infecting family members you must wear a MASK Follow up with: PRIMARY CARE, [Primary Care Provider] - 3-5 Days YNES KEENAN MD [Staff Physician] - 14 Days FRANCO LAM MD [Staff Physician] - 14 Days Prescriptions: Spironolactone [Aldactone] 25 mg PO QDAY #30 tablet carvediloL [Coreg] 6.25 mg PO BID #60 tablet Losartan [Cozaar] 50 mg PO QDAY #30 tablet Potassium Chloride [K-Dur] 20 meq PO DAILY #10 tablet Furosemide [Lasix TAB] 40 mg PO QDAY #30 tablet levoFLOXacin [Levaquin] 750 mg PO QDAY #5 tablet NIFEdipine XL [Procardia Xl] 30 mg PO QDAY #30 tablet
[2020-01-24 14:37] VITALS: BP 133/86
== END 2020-01-24 15:45 | disposition home or self-care (01) | DRG 776 ==
LOC: ED 14:57 → 4A 21:51 → 3A 01-22 01:03
PROVIDERS: ADMIT Internal Medicine Geriatric Medicine; ATTEND Internal Medicine
DX: O99.53 Diseases of the respiratory system complicating the puerperium (principal); O99.43 Diseases of the circulatory system complicating the puerperium; I50.21 Acute systolic (congestive) heart failure; J18.9 Pneumonia, unspecified organism; J96.00 Acute respiratory failure, unspecified whether with hypoxia or hypercapnia; O99.285 Endocrine, nutritional and metabolic diseases complicating the puerperium; E28.2 Polycystic ovarian syndrome; O99.215 Obesity complicating the puerperium; E66.01 Morbid (severe) obesity due to excess calories; O90.81 Anemia of the puerperium; D64.9 Anemia, unspecified; O24.439 Gestational diabetes mellitus in the puerperium, unspecified control; I42.9 Cardiomyopathy, unspecified; J90 Pleural effusion, not elsewhere classified; Z82.49 Family history of ischemic heart disease and other diseases of the circulatory system; E87.6 Hypokalemia; O90.89 Other complications of the puerperium, not elsewhere classified; R51 Headache
CPT/HCPCS: 36415; 71045; 71275; 80048; 80053; 82962; 83880; 85007; 85025; 85379; 85610; 85730; 87040; 87116; 87400; 93005; 93010; 93306; 94760; G0378; 87502; J0360; J0456; J0692; J0696; J1644; J1940; J2270; J3370; J7040; J7050; Q9967